=== PATIENT | female | born 1960 | race African-American/Black ===

== ENCOUNTER 2022-07-23 05:04 | Inpatient (IN) | payer MEDICAID, OTHER ==
[~2022-07-23] VITALS: Ht 160 cm; Wt 67.9 kg
[2022-07-23] MEDS ORDERED: ALBUTEROL SULF 2.5 MG/0.5ML(0.5%) NEB SOLN NEB ONE ×2 (05:15→06:30)
[2022-07-23] MEDS ORDERED: methylPREDNISolone SOD SUCC 125 MG/2 ML VL IV ONE (05:15)
[2022-07-23] MEDS ORDERED: IPRATROPIUM BROM 0.5 MG/2.5ML INH SOL NEB ONE ×2 (05:15→06:30)
[2022-07-23 06:51] LABS: Basophils # (auto) 0 10 ^3/uL (0-0.2); Basophils % (auto) 0.3 % (0.0-2.0); Eosinophils # (auto) 0 10 ^3/uL (0-0.8); Hematocrit 44.4 % (36.0-46.0); Hemoglobin 15.8 g/dL (12.2-16.2); Lymphocytes # (auto) 0.5 10 ^3/uL (0.4-5.4); Lymphocytes % (auto) 3.8 % (10.0-50.0); Mean Corpuscular Hemoglobin 29.7 pg (28.0-32.0); Mean Corpuscular Hgb Conc. 35.6 g/dL (32.0-36.0); Mean Corpuscular Volume 83.4 fL (80.0-100.0); Monocytes # (auto) 0.4 10 ^3/uL (0-1.3); Monocytes % (auto) 3.6 % (0.0-12.0); Neutrophils % (auto) 92.3 % (37.0-80.0); Nucleated Red Blood Cells % 0.1 %; Red Blood Cells 5.32 10^6/uL (4.0-5.20); Red Cell Distribution Width 15.6 % (11.8-14.3); White Blood Cell 11.9 10^3/uL (4.4-10.8)
[2022-07-23 07:04] LABS: Albumin 3.6 g/dL (3.4-5.0); Calcium 9.7 mg/dL (8.5-10.1); Potassium 3.3 mmol/L (3.5-5.1)
[2022-07-23 07:07] LABS: Bilirubin, Total 0.4 mg/dL (0.2-1.0); Total Protein 7.9 g/dL (6.4-8.2)
[2022-07-23] MEDS ORDERED: ASPirin 325 MG TAB PO ONE ×2 (07:45→08:30)
[2022-07-23] MEDS ORDERED: cefTRIAXone 1GM/50ML D5W 50 ML IV ONE (07:45)
[2022-07-23] MEDS ORDERED: MAGNESIUM SULFATE 1GM/100ML 100 ML IV ONE (07:45)
[2022-07-23] MEDS ORDERED: AZITHROMYCIN 500MG/ 250ML 250 ML IV ONE (07:45)
[2022-07-23 08:44] VITALS: BP 143/85
[2022-07-23] MEDS ORDERED: POTASSIUM EFFERVESENT TAB 25 MEQ PO ONE (09:00)
[2022-07-23 10:00] VITALS: BP 151/83
[2022-07-23] MEDS ORDERED: NITROGLYCERIN 0.4 MG SL TAB SL PRN (10:15)
[2022-07-23] MEDS ORDERED: DOCUSATE SOD 100 MG CAP PO PRN (10:15)
[2022-07-23] MEDS ORDERED: ONDANSETRON HCL 4 MG/2 ML VIAL IV PRN (10:15)
[2022-07-23] MEDS ORDERED: MORPHINE SULFATE INJ 2 MG/ml SYRG IV PRN ×2 (10:15)
[2022-07-23 11:35] LABS: INR 0.97 (0.9-1.15)
[2022-07-23] MEDS: SODIUM CHLORIDE 0.9% 1,000 ML IV SCH ×2 (11:40→21:17)
[2022-07-23 12:03] VITALS: BP 176/116
[2022-07-23] MEDS: methylPREDNISolone SOD SUCC 125 MG/2 ML VL IV SCH ×2 (13:45→22:33)
[2022-07-23] MEDS: IPRATROPIUM BROM 0.5 MG/2.5ML INH SOL NEB SCH ×3 (14:00→22:56)
[2022-07-23] MEDS: ALBUTEROL SULF 2.5 MG/0.5ML(0.5%) NEB SOLN NEB SCH ×3 (14:00→22:56)
[2022-07-23 14:46] LABS: Magnesium 2.4 mg/dL (1.6-2.6)
[2022-07-23] MEDS: ENOXAPARIN SOD 60 MG/0.6 ML SYRINGE SC SCH ×2 (15:16→22:33)
[2022-07-23] MEDS: OSELTAMIVIR 75 MG CAP PO SCH ×2 (16:27→22:32)
[2022-07-23] MEDS ORDERED: METOPROLOL TARTRATE 25 MG TAB PO SCH (22:00)
[2022-07-23] MEDS: ATORVASTATIN 20 MG TAB PO SCH (22:32)
[2022-07-23 23:09] VITALS: BP_SYST 150; BP_DIAS 89; BP_DIAS 99
[2022-07-23] MEDS ORDERED: ACETAMINOPHEN 325 MG TAB PO PRN (23:45)
[2022-07-24] VITALS (13 sets, daily range): BP systolic 99–179; BP diastolic 65–109
[2022-07-24] MEDS: SODIUM CHLORIDE 0.9% 1,000 ML IV SCH ×2 (02:55→11:15)
[2022-07-24] MEDS: hydrALAZINE HCL 20 MG/ML VL IV PRN (04:19)
[2022-07-24] MEDS: ALBUTEROL SULF 2.5 MG/0.5ML(0.5%) NEB SOLN NEB SCH ×5 (04:52→22:09)
[2022-07-24] MEDS: IPRATROPIUM BROM 0.5 MG/2.5ML INH SOL NEB SCH ×5 (04:52→22:09)
[2022-07-24] MEDS ORDERED: ALBU108A5 IN (05:35)
[2022-07-24] MEDS: methylPREDNISolone SOD SUCC 125 MG/2 ML VL IV SCH ×3 (05:52→21:46)
[2022-07-24 08:08] LABS: Basophils # (auto) 0 10 ^3/uL (0-0.2); Eosinophils # (auto) 0 10 ^3/uL (0-0.8); Hematocrit 45.1 % (36.0-46.0); Lymphocytes # (auto) 0.9 10 ^3/uL (0.4-5.4); Lymphocytes % (auto) 4.1 % (10.0-50.0); Mean Corpuscular Hemoglobin 28.6 pg (28.0-32.0); Mean Corpuscular Hgb Conc. 33.2 g/dL (32.0-36.0); Monocytes # (auto) 0.4 10 ^3/uL (0-1.3); Monocytes % (auto) 1.9 % (0.0-12.0); Neutrophils # (auto) 20.2 10 ^3/uL (1.6-8.6); Nucleated Red Blood Cells % 0.1 %; Red Blood Cells 5.25 10^6/uL (4.0-5.20); Red Cell Distribution Width 15.7 % (11.8-14.3); White Blood Cell 21.5 10^3/uL (4.4-10.8)
[2022-07-24 08:31] LABS: Albumin 3.1 g/dL (3.4-5.0); Calcium 9.8 mg/dL (8.5-10.1); Potassium 4.4 mmol/L (3.5-5.1)
[2022-07-24 08:37] LABS: BUN/Creatinine Ratio 20.5; Bilirubin, Total 0.4 mg/dL (0.2-1.0); Total Protein 7.4 g/dL (6.4-8.2)
[2022-07-24] MEDS: cefTRIAXone 1GM/50ML D5W 50 ML IV SCH (08:46)
[2022-07-24] MEDS: OSELTAMIVIR 75 MG CAP PO SCH ×2 (10:00→21:45)
[2022-07-24] MEDS: AZITHROMYCIN 500MG/ 250ML 250 ML IV SCH (10:00)
[2022-07-24] MEDS ORDERED: ENOXAPARIN SOD 40 MG/0.4 ML SYRINGE SC SCH (10:00)
[2022-07-24] MEDS: PANTOPRAZOLE 40 MG/10 ML VIAL INJ IV SCH (10:38)
[2022-07-24] MEDS: LISINOPRIL 20 MG TAB PO SCH (10:39)
[2022-07-24] MEDS: HCTZ 25 MG TAB PO SCH (10:40)
[2022-07-24] MEDS: NICOTINE 14 MG/24HR TOPICAL PATCH TD SCH (10:40)
[2022-07-24] MEDS: ENOXAPARIN SOD 60 MG/0.6 ML SYRINGE SC SCH ×2 (10:45→21:46)
[2022-07-24] MEDS ORDERED: FUROSEMIDE 20 MG/2 ML VIAL IV ONE (12:00)
[2022-07-24] MEDS ORDERED: FUROSEMIDE 20 MG/2 ML VIAL ONE (14:42)
[2022-07-24] MEDS: ATORVASTATIN 20 MG TAB PO SCH (21:45)
[2022-07-25] VITALS (18 sets, daily range): BP systolic 95–167; BP diastolic 66–99
[2022-07-25 04:11] LABS: Basophils # (auto) 0 10 ^3/uL (0-0.2); Basophils % (auto) 0.1 % (0.0-2.0); Eosinophils # (auto) 0 10 ^3/uL (0-0.8); Hematocrit 42.3 % (36.0-46.0); Hemoglobin 14.3 g/dL (12.2-16.2); Lymphocytes # (auto) 0.5 10 ^3/uL (0.4-5.4); Lymphocytes % (auto) 2.3 % (10.0-50.0); Mean Corpuscular Hemoglobin 28.8 pg (28.0-32.0); Mean Corpuscular Hgb Conc. 33.8 g/dL (32.0-36.0); Mean Corpuscular Volume 85.2 fL (80.0-100.0); Monocytes # (auto) 0.4 10 ^3/uL (0-1.3); Monocytes % (auto) 1.6 % (0.0-12.0); Neutrophils # (auto) 21.9 10 ^3/uL (1.6-8.6); Red Blood Cells 4.96 10^6/uL (4.0-5.20); Red Cell Distribution Width 15.2 % (11.8-14.3); White Blood Cell 22.8 10^3/uL (4.4-10.8)
[2022-07-25 04:23] LABS: Calcium 10.3 mg/dL (8.5-10.1); Potassium 4.1 mmol/L (3.5-5.1)
[2022-07-25] MEDS: methylPREDNISolone SOD SUCC 125 MG/2 ML VL IV SCH ×3 (05:54→22:34)
[2022-07-25] MEDS: IPRATROPIUM BROM 0.5 MG/2.5ML INH SOL NEB SCH ×5 (06:29→22:14)
[2022-07-25] MEDS: ALBUTEROL SULF 2.5 MG/0.5ML(0.5%) NEB SOLN NEB SCH ×5 (06:29→22:14)
[2022-07-25] MEDS: cefTRIAXone 1GM/50ML D5W 50 ML IV SCH (08:29)
[2022-07-25] MEDS: AZITHROMYCIN 500MG/ 250ML 250 ML IV SCH (09:13)
[2022-07-25] MEDS: PANTOPRAZOLE 40 MG/10 ML VIAL INJ IV SCH (09:13)
[2022-07-25] MEDS: HCTZ 25 MG TAB PO SCH (09:14)
[2022-07-25] MEDS: OSELTAMIVIR 75 MG CAP PO SCH ×2 (09:14→22:34)
[2022-07-25] MEDS: LISINOPRIL 20 MG TAB PO SCH (09:15)
[2022-07-25] MEDS: ENOXAPARIN SOD 60 MG/0.6 ML SYRINGE SC SCH ×2 (09:15→22:34)
[2022-07-25] MEDS: NICOTINE 14 MG/24HR TOPICAL PATCH TD SCH (09:25)
[2022-07-25] MEDS: ATORVASTATIN 20 MG TAB PO SCH (22:34)
[2022-07-26] VITALS (7 sets, daily range): BP systolic 127–167; BP diastolic 65–96
[2022-07-26] MEDS: methylPREDNISolone SOD SUCC 125 MG/2 ML VL IV SCH ×3 (05:53→21:58)
[2022-07-26] MEDS: IPRATROPIUM BROM 0.5 MG/2.5ML INH SOL NEB SCH ×5 (06:52→23:21)
[2022-07-26] MEDS: ALBUTEROL SULF 2.5 MG/0.5ML(0.5%) NEB SOLN NEB SCH ×5 (06:52→23:20)
[2022-07-26] MEDS: cefTRIAXone 1GM/50ML D5W 50 ML IV SCH (08:37)
[2022-07-26] MEDS: AZITHROMYCIN 500MG/ 250ML 250 ML IV SCH (09:44)
[2022-07-26] MEDS: PANTOPRAZOLE 40 MG/10 ML VIAL INJ IV SCH (09:44)
[2022-07-26] MEDS: HCTZ 25 MG TAB PO SCH (09:45)
[2022-07-26] MEDS: LISINOPRIL 20 MG TAB PO SCH (09:45)
[2022-07-26] MEDS: OSELTAMIVIR 75 MG CAP PO SCH ×2 (09:45→21:59)
[2022-07-26] MEDS: ENOXAPARIN SOD 60 MG/0.6 ML SYRINGE SC SCH (09:46)
[2022-07-26] MEDS: NICOTINE 14 MG/24HR TOPICAL PATCH TD SCH (09:46)
[2022-07-26] MEDS: ATORVASTATIN 20 MG TAB PO SCH (21:58)
[2022-07-27 05:00] VITALS: BP 127/71
[2022-07-27] MEDS: methylPREDNISolone SOD SUCC 125 MG/2 ML VL IV SCH ×3 (05:40→22:05)
[2022-07-27] MEDS: IPRATROPIUM BROM 0.5 MG/2.5ML INH SOL NEB SCH ×4 (06:05→21:49)
[2022-07-27] MEDS: ALBUTEROL SULF 2.5 MG/0.5ML(0.5%) NEB SOLN NEB SCH ×4 (06:05→21:49)
[2022-07-27] MEDS: cefTRIAXone 1GM/50ML D5W 50 ML IV SCH (08:13)
[2022-07-27 08:15] VITALS: BP 157/87
[2022-07-27 08:25] VITALS: BP 157/81
[2022-07-27] MEDS: AZITHROMYCIN 500MG/ 250ML 250 ML IV SCH (10:24)
[2022-07-27] MEDS: OSELTAMIVIR 75 MG CAP PO SCH ×2 (10:24→22:02)
[2022-07-27] MEDS: HCTZ 25 MG TAB PO SCH (10:25)
[2022-07-27] MEDS: LISINOPRIL 20 MG TAB PO SCH (10:25)
[2022-07-27] MEDS: NICOTINE 14 MG/24HR TOPICAL PATCH TD SCH (10:29)
[2022-07-27 13:00] VITALS: BP 153/92
[2022-07-27 16:37] VITALS: BP 165/99
[2022-07-27] MEDS: hydrALAZINE HCL 20 MG/ML VL IV PRN (17:12)
[2022-07-27] MEDS ORDERED: ASPirin 325 MG TAB PO ONE (18:00)
[2022-07-27] MEDS ORDERED: NITROGLYCERIN 0.4 MG SL TAB SL PRN (18:00)
[2022-07-27] MEDS ORDERED: MORPHINE SULFATE INJ 2 MG/ml SYRG IV ONE (18:00)
[2022-07-27] MEDS ORDERED: MORPHINE SULFATE INJ 2 MG/ml SYRG IV PRN (18:00)
[2022-07-27] MEDS ORDERED: ENOXAPARIN SOD 80 MG/0.8ML SYRINGE SC ONE (18:45)
[2022-07-27] MEDS: ATORVASTATIN 20 MG TAB PO SCH (22:02)
[2022-07-27] MEDS: ENOXAPARIN SOD 80 MG/0.8ML SYRINGE SC SCH (22:05)
[2022-07-27 22:18] VITALS: BP 138/70
[2022-07-28 05:00] VITALS: BP 125/65
[2022-07-28 05:00] LABS: Basophils # (auto) 0.1 10 ^3/uL (0-0.2); Basophils % (auto) 0.5 % (0.0-2.0); Eosinophils # (auto) 0 10 ^3/uL (0-0.8); Hematocrit 43.3 % (36.0-46.0); Lymphocytes # (auto) 0.5 10 ^3/uL (0.4-5.4); Lymphocytes % (auto) 4.4 % (10.0-50.0); Mean Corpuscular Hemoglobin 28.9 pg (28.0-32.0); Mean Corpuscular Hgb Conc. 34.7 g/dL (32.0-36.0); Mean Corpuscular Volume 83.1 fL (80.0-100.0); Monocytes # (auto) 0.6 10 ^3/uL (0-1.3); Neutrophils # (auto) 10.2 10 ^3/uL (1.6-8.6); Neutrophils % (auto) 90.1 % (37.0-80.0); Nucleated Red Blood Cells % 0.1 %; Red Blood Cells 5.21 10^6/uL (4.0-5.20); Red Cell Distribution Width 15.1 % (11.8-14.3); White Blood Cell 11.4 10^3/uL (4.4-10.8)
[2022-07-28 05:18] LABS: BUN/Creatinine Ratio 26.8; Calcium 10.4 mg/dL (8.5-10.1); Potassium 3.7 mmol/L (3.5-5.1)
[2022-07-28] MEDS: methylPREDNISolone SOD SUCC 125 MG/2 ML VL IV SCH ×3 (06:21→21:37)
[2022-07-28] MEDS: IPRATROPIUM BROM 0.5 MG/2.5ML INH SOL NEB SCH ×5 (07:16→21:58)
[2022-07-28] MEDS: ALBUTEROL SULF 2.5 MG/0.5ML(0.5%) NEB SOLN NEB SCH ×5 (07:16→21:58)
[2022-07-28] MEDS: cefTRIAXone 1GM/50ML D5W 50 ML IV SCH (08:08)
[2022-07-28 08:10] VITALS: BP 141/83
[2022-07-28 09:00] VITALS: BP 141/83
[2022-07-28] MEDS: NICOTINE 14 MG/24HR TOPICAL PATCH TD SCH (10:09)
[2022-07-28] MEDS: LISINOPRIL 20 MG TAB PO SCH (10:09)
[2022-07-28] MEDS: OSELTAMIVIR 75 MG CAP PO SCH ×2 (10:09→21:37)
[2022-07-28] MEDS: ASPirin 81 mg TAB PO SCH (10:09)
[2022-07-28] MEDS: AZITHROMYCIN 500MG/ 250ML 250 ML IV SCH (10:09)
[2022-07-28] MEDS: HCTZ 25 MG TAB PO SCH (10:10)
[2022-07-28] MEDS: ENOXAPARIN SOD 80 MG/0.8ML SYRINGE SC SCH ×2 (10:10→21:38)
[2022-07-28 13:00] VITALS: BP 144/88
[2022-07-28 17:00] VITALS: BP 136/86
[2022-07-28] MEDS: ATORVASTATIN 20 MG TAB PO SCH (21:37)
[2022-07-28 22:00] VITALS: BP 150/90
[2022-07-29] VITALS (8 sets, daily range): BP systolic 115–178; BP diastolic 60–110
[2022-07-29 04:28] LABS: Basophils # (auto) 0 10 ^3/uL (0-0.2); Basophils % (auto) 0.2 % (0.0-2.0); Eosinophils # (auto) 0 10 ^3/uL (0-0.8); Hematocrit 40.7 % (36.0-46.0); Hemoglobin 14.8 g/dL (12.2-16.2); Lymphocytes # (auto) 1.2 10 ^3/uL (0.4-5.4); Lymphocytes % (auto) 11.8 % (10.0-50.0); Mean Corpuscular Hemoglobin 29.5 pg (28.0-32.0); Mean Corpuscular Hgb Conc. 36.4 g/dL (32.0-36.0); Mean Corpuscular Volume 81.1 fL (80.0-100.0); Monocytes % (auto) 9.5 % (0.0-12.0); Neutrophils # (auto) 8.3 10 ^3/uL (1.6-8.6); Neutrophils % (auto) 78.5 % (37.0-80.0); Nucleated Red Blood Cells % 0.2 %; Red Blood Cells 5.02 10^6/uL (4.0-5.20); Red Cell Distribution Width 14.7 % (11.8-14.3); White Blood Cell 10.5 10^3/uL (4.4-10.8)
[2022-07-29 04:39] LABS: BUN/Creatinine Ratio 27.6; Calcium 10.5 mg/dL (8.5-10.1); Potassium 3.6 mmol/L (3.5-5.1)
[2022-07-29] MEDS: methylPREDNISolone SOD SUCC 125 MG/2 ML VL IV SCH ×2 (06:12→10:29)
[2022-07-29] MEDS: IPRATROPIUM BROM 0.5 MG/2.5ML INH SOL NEB SCH ×5 (08:23→22:09)
[2022-07-29] MEDS: ALBUTEROL SULF 2.5 MG/0.5ML(0.5%) NEB SOLN NEB SCH ×5 (08:23→22:08)
[2022-07-29] MEDS: cefTRIAXone 1GM/50ML D5W 50 ML IV SCH (08:24)
[2022-07-29] MEDS: NICOTINE 14 MG/24HR TOPICAL PATCH TD SCH (10:28)
[2022-07-29] MEDS: LISINOPRIL 20 MG TAB PO SCH (10:29)
[2022-07-29] MEDS: OSELTAMIVIR 75 MG CAP PO SCH ×2 (10:30→21:45)
[2022-07-29] MEDS: HCTZ 25 MG TAB PO SCH (10:30)
[2022-07-29] MEDS: ASPirin 81 mg TAB PO SCH (10:30)
[2022-07-29] MEDS: AZITHROMYCIN 500MG/ 250ML 250 ML IV SCH (10:30)
[2022-07-29] MEDS: ENOXAPARIN SOD 80 MG/0.8ML SYRINGE SC SCH ×2 (10:31→21:45)
[2022-07-29] MEDS ORDERED: REGADENOSON 0.4 MG/5 ML SYRG IV ONE (10:45)
[2022-07-29] MEDS: hydrALAZINE HCL 20 MG/ML VL IV PRN (17:40)
[2022-07-29] MEDS: ATORVASTATIN 20 MG TAB PO SCH (21:45)
[2022-07-30 05:00] VITALS: BP 172/113
[2022-07-30] MEDS: hydrALAZINE HCL 20 MG/ML VL IV PRN (05:07)
[2022-07-30 06:07] VITALS: BP 135/76
[2022-07-30 06:22] LABS: Basophils # (auto) 0.1 10 ^3/uL (0-0.2); Basophils % (auto) 0.4 % (0.0-2.0); Eosinophils # (auto) 0 10 ^3/uL (0-0.8); Eosinophils % (auto) 0.1 % (0.0-7.0); Hematocrit 45.8 % (36.0-46.0); Hemoglobin 15.5 g/dL (12.2-16.2); Lymphocytes # (auto) 1.9 10 ^3/uL (0.4-5.4); Lymphocytes % (auto) 13.5 % (10.0-50.0); Mean Corpuscular Hemoglobin 28.2 pg (28.0-32.0); Mean Corpuscular Hgb Conc. 33.9 g/dL (32.0-36.0); Mean Corpuscular Volume 83.3 fL (80.0-100.0); Monocytes # (auto) 1.2 10 ^3/uL (0-1.3); Monocytes % (auto) 8.4 % (0.0-12.0); Neutrophils # (auto) 10.9 10 ^3/uL (1.6-8.6); Neutrophils % (auto) 77.6 % (37.0-80.0); Nucleated Red Blood Cells % 0.1 %; Red Cell Distribution Width 14.8 % (11.8-14.3)
[2022-07-30 06:55] LABS: Potassium 3.7 mmol/L (3.5-5.1)
[2022-07-30 07:00] LABS: Calcium 10.6 mg/dL (8.5-10.1)
[2022-07-30] MEDS: ALBUTEROL SULF 2.5 MG/0.5ML(0.5%) NEB SOLN NEB SCH ×4 (07:24→14:11)
[2022-07-30] MEDS: IPRATROPIUM BROM 0.5 MG/2.5ML INH SOL NEB SCH ×4 (07:24→14:11)
[2022-07-30 08:52] VITALS: BP 132/75
[2022-07-30] MEDS: cefTRIAXone 1GM/50ML D5W 50 ML IV SCH (09:02)
[2022-07-30] MEDS: NICOTINE 14 MG/24HR TOPICAL PATCH TD SCH (09:02)
[2022-07-30] MEDS: AZITHROMYCIN 500MG/ 250ML 250 ML IV SCH (09:03)
[2022-07-30] MEDS: ASPirin 81 mg TAB PO SCH (09:03)
[2022-07-30] MEDS: methylPREDNISolone SOD SUCC 125 MG/2 ML VL IV SCH (09:03)
[2022-07-30] MEDS: LISINOPRIL 20 MG TAB PO SCH (09:03)
[2022-07-30] MEDS: ENOXAPARIN SOD 80 MG/0.8ML SYRINGE SC SCH (09:04)
[2022-07-30] MEDS: HCTZ 25 MG TAB PO SCH (09:04)
[2022-07-30] MEDS: OSELTAMIVIR 75 MG CAP PO SCH (10:00)
[2022-07-30] MEDS ORDERED: PRED20TA2 PO (10:14)
[2022-07-30 11:02] VITALS: BP 132/75
[2022-07-30 13:00] VITALS: BP 141/75
== END 2022-07-30 13:50 | disposition home or self-care (01) | DRG 140 ==
LOC: ER 05:04 → EDBD 05:04 → TELE 10:46 → TELE-WESTW 21:41 → ICU WEST 07-24 14:28 → TELE-EAST 07-25 12:00
PROVIDERS: ADMIT Nurse Practitioner Family; ATTEND Internal Medicine Pulmonary Disease
PROC: 5A09357 Assistance with Respiratory Ventilation, Less than 24 Consecutive Hours, Continuous Positive Airway Pressure (ICD-10-PCS; principal; 2022-07-23)
PROC: 5A09357 Assistance with Respiratory Ventilation, Less than 24 Consecutive Hours, Continuous Positive Airway Pressure (ICD-10-PCS; 2022-07-24)
PROC: 05HB33Z Insertion of Infusion Device into Right Basilic Vein, Percutaneous Approach (ICD-10-PCS; 2022-07-24)
PROC: B54MZZA Ultrasonography of Right Upper Extremity Veins, Guidance (ICD-10-PCS; 2022-07-24)
PROC: 5A09357 Assistance with Respiratory Ventilation, Less than 24 Consecutive Hours, Continuous Positive Airway Pressure (ICD-10-PCS; 2022-07-25)
PROC: 5A09357 Assistance with Respiratory Ventilation, Less than 24 Consecutive Hours, Continuous Positive Airway Pressure (ICD-10-PCS; 2022-07-26)
PROC: 5A09357 Assistance with Respiratory Ventilation, Less than 24 Consecutive Hours, Continuous Positive Airway Pressure (ICD-10-PCS; 2022-07-27)
DX: J44.1 Chronic obstructive pulmonary disease with (acute) exacerbation (principal); I21.A1 Myocardial infarction type 2; J96.01 Acute respiratory failure with hypoxia; J10.00 Influenza due to other identified influenza virus with unspecified type of pneumonia; J96.02 Acute respiratory failure with hypercapnia; E87.29 Other acidosis; J45.51 Severe persistent asthma with (acute) exacerbation; R65.10 Systemic inflammatory response syndrome (SIRS) of non-infectious origin without acute organ dysfunction; J44.0 Chronic obstructive pulmonary disease with (acute) lower respiratory infection; I10 Essential (primary) hypertension; Z20.822 Contact with and (suspected) exposure to COVID-19; E87.6 Hypokalemia; I16.0 Hypertensive urgency; F17.210 Nicotine dependence, cigarettes, uncomplicated; Z90.710 Acquired absence of both cervix and uterus
CPT/HCPCS: 36415; 36600; 71045; 78452; 80048; 80053; 82805; 83735; 83880; 84100; 84484; 85025; 85610; 85730; 87081; 87426; 87804; 93005; 93017; 93306; 93970; 94640; 94660; 96361; 96365; 96367; 96368; 96375; 99291; C9113; G0378; J0696

== ENCOUNTER 2024-01-12 10:58 | Emergency (ER) | payer MEDICAID, OTHER ==
[~2024-01-12] VITALS: Ht 157.5 cm; Wt 50.7 kg
[~2024-01-12 10:58] MED LIST: ALBU108A5 IN; PRED20TA2 PO
[2024-01-12 11:47] VITALS: RESP 98; O2SAT 93
[2024-01-12] MEDS: cloNIDine HCL 0.1 MG TAB PO ONE (11:59)
[2024-01-12] MEDS ORDERED: IPRATROPIUM BROM 0.5 MG/2.5ML INH SOL NEB ONE (12:30)
[2024-01-12] MEDS: ALBUTEROL SULF 2.5 MG/0.5ML(0.5%) NEB SOLN NEB ONE (12:49)
[2024-01-12] MEDS: IPRATROPIUM BROM 0.5 MG/2.5ML INH SOL NEB ONE (12:49)
[2024-01-12] MEDS: methylPREDNISolone SOD SUCC 125 MG/2 ML VL IM ONE (12:56)
[2024-01-12 12:57] VITALS: TEMP 98.2
[2024-01-12 13:20] VITALS: BP 117/80; PULSE 91; RESP 16; O2SAT 100
[2024-01-12] MEDS ORDERED: TRIA75TA11 PO (13:22)
[2024-01-12] MEDS ORDERED: ALB5IS NEB (13:22)
[2024-01-12] MEDS ORDERED: METH4PAK PO (13:22)
== END 2024-01-12 13:27 | disposition home or self-care (01) ==
LOC: ER 10:58
DX: J45.901 Unspecified asthma with (acute) exacerbation (principal); I10 Essential (primary) hypertension; Z91.148 Patient's other noncompliance with medication regimen for other reason; Z90.710 Acquired absence of both cervix and uterus
CPT/HCPCS: 71045; 94640; 96372; 99283; J2930; J7644

== ENCOUNTER 2024-01-17 10:11 | Inpatient (IN) | payer OTHER ==
[~2024-01-17] VITALS: Ht 157.5 cm; Wt 54.1 kg
[~2024-01-17 10:11] MED LIST changes: +ALB5IS NEB; +METH4PAK PO; +TRIA75TA11 PO
[2024-01-17 11:02] VITALS: PULSE 88; RESP 13; O2SAT 99
[2024-01-17] MEDS: IOHEXOL 300 MG/ML 100ML BOTTLE IJ ONE (11:32)
[2024-01-17 12:08] LABS: Basophils # (auto) 0 10 ^3/uL (0-0.2); Basophils % (auto) 0.6 % (0.0-2.0); Eosinophils # (auto) 0.1 10 ^3/uL (0-0.8); Eosinophils % (auto) 1.5 % (0.0-7.0); Hematocrit 41.2 % (36.0-46.0); Hemoglobin 14.4 g/dL (12.2-16.2); Lymphocytes # (auto) 1.5 10 ^3/uL (0.4-5.4); Lymphocytes % (auto) 19.1 % (10.0-50.0); Mean Corpuscular Hemoglobin 30.7 pg (28.0-32.0); Mean Corpuscular Hgb Conc. 34.9 g/dL (32.0-36.0); Mean Corpuscular Volume 87.8 fL (80.0-100.0); Monocytes # (auto) 0.4 10 ^3/uL (0-1.3); Monocytes % (auto) 4.7 % (0.0-12.0); Neutrophils % (auto) 74.1 % (37.0-80.0); Nucleated Red Blood Cells % 0.2 %; Red Cell Distribution Width 14.5 % (11.8-14.3)
[2024-01-17 12:21] LABS: INR 0.99 (0.9-1.15); Partial Thromboplastin Time 22.3 SEC (24.5-34.5); Prothrombin Time 10.5 sec (9.3-11.8)
[2024-01-17 12:27] LABS: Alanine Aminotransferase 13 U/L (7-40); Albumin 4.1 g/dL (3.2-4.8); Alkaline Phosphatase 73 U/L (46-116); Anion Gap 8 (5-15); Aspartate Aminotransferase 17 U/L (13-40); BUN/Creatinine Ratio 32.8 (10.0-20.0); Bilirubin, Total 0.8 mg/dL (0.2-1.0); Blood Urea Nitrogen 63 mg/dL (9-23); Calcium 10.8 mg/dL (8.5-10.1); Carbon Dioxide 32 mmol/L (20-30); Chloride 95 mmol/L (98-107); Glucose 143 mg/dL (74-106); Potassium 3.8 mmol/L (3.5-5.1); Sodium 135 mmol/L (136-145); Total Protein 6.6 g/dL (5.7-8.2)
[2024-01-17 14:52] LABS: Urine Bacteria FEW /hpf (None Seen); Urine Blood Negative /uL (Negative); Urine Clarity Clear (Clear); Urine Color Light-Yellow (Yellow); Urine Protein, UAD 1+ (Negative); Urine Urobilinogen Normal (Negative); Urine WBC 2 /hpf (0 - 5)
[2024-01-17 15:16] LABS: Urine Specific Gravity > 1.050 (1.001-1.035)
[2024-01-17] MEDS ORDERED: NITROGLYCERIN 0.4 MG SL TAB SL PRN (15:30)
[2024-01-17] MEDS ORDERED: ACETAMINOPHEN 325 MG TAB PO PRN (15:30)
[2024-01-17] MEDS ORDERED: MORPHINE SULFATE INJ 2 MG/ml SYRG IV PRN (15:30)
[2024-01-17 16:31] LABS: Amphetamine Screen, Urine Neg (NEGATIVE); Barbiturate Scree,Urine Neg (NEGATIVE); Benzodiazephine Screen, Urine Neg (NEGATIVE); Cannabinoid Screen, Urine Pos (NEGATIVE); Cocaine Screen, Urine Neg (NEGATIVE); Opiate Scree,Urine Neg (NEGATIVE); Phencyclidine Screen, Urine Neg (NEGATIVE)
[2024-01-17] MEDS: SODIUM CHLORIDE 0.9% 1,000 ML IV SCH (16:39)
[2024-01-17] MEDS: SODIUM CHLORIDE 0.9% 1,000 ML IV ONE (16:39)
[2024-01-17 18:36] VITALS: O2SAT 96
[2024-01-17 19:10] VITALS: BP 123/88; PULSE 98; RESP 18; TEMP 97.4; O2SAT 98
[2024-01-17 19:30] VITALS: PULSE 106; RESP 18; O2SAT 95
[2024-01-17 21:54] LABS: Protein, Urine 26.1 mg/dL (0.0-11.9)
[2024-01-17 21:57] LABS: Creatinine, Urine 118.65 mg/dL (30.0-125.0); Urine Protein/Creatinine Ratio 0.22
[2024-01-17 23:09] VITALS: BP 132/98; PULSE 95; RESP 19; TEMP 98.5; O2SAT 96
[2024-01-17] MEDS: HYDROcodone-ACET 5/325MG TAB PO PRN (23:24)
[2024-01-18] VITALS (10 sets, daily range): BP systolic 114–148; BP diastolic 78–101; PULSE 86–100; RESP 16–20; TEMP 97.8–98.4; O2SAT 90–100
[2024-01-18 06:13] LABS: Basophils # (auto) 0 10 ^3/uL (0-0.2); Basophils % (auto) 0.6 % (0.0-2.0); Eosinophils # (auto) 0.1 10 ^3/uL (0-0.8); Eosinophils % (auto) 1.9 % (0.0-7.0); Hematocrit 34.2 % (36.0-46.0); Hemoglobin 11.7 g/dL (12.2-16.2); Lymphocytes % (auto) 31.4 % (10.0-50.0); Mean Corpuscular Hemoglobin 30.3 pg (28.0-32.0); Mean Corpuscular Hgb Conc. 34.4 g/dL (32.0-36.0); Mean Corpuscular Volume 88.2 fL (80.0-100.0); Monocytes # (auto) 0.5 10 ^3/uL (0-1.3); Monocytes % (auto) 8.1 % (0.0-12.0); Neutrophils # (auto) 3.8 10 ^3/uL (1.6-8.6); Nucleated Red Blood Cells % 0.1 %; Red Blood Cells 3.88 10^6/uL (4.0-5.20); Red Cell Distribution Width 14.8 % (11.8-14.3); White Blood Cell 6.5 10^3/uL (4.4-10.8)
[2024-01-18 06:38] LABS: Alanine Aminotransferase 15 U/L (7-40); Albumin 3.5 g/dL (3.2-4.8); Alkaline Phosphatase 57 U/L (46-116); Anion Gap 7 (5-15); Aspartate Aminotransferase 15 U/L (13-40); BUN/Creatinine Ratio 39.8 (10.0-20.0); Bilirubin, Total 0.7 mg/dL (0.2-1.0); Carbon Dioxide 28 mmol/L (20-30); Chloride 100 mmol/L (98-107); Glucose 93 mg/dL (74-106); Potassium 3.2 mmol/L (3.5-5.1); Sodium 135 mmol/L (136-145); Total Protein 5.7 g/dL (5.7-8.2)
[2024-01-18 06:40] LABS: Blood Urea Nitrogen 45 mg/dL (9-23)
[2024-01-18] MEDS: LORazepam 2MG/ML-1ML VIAL IV PRN (08:20)
[2024-01-18] MEDS ORDERED: TRIAMTER PO SCH (10:00)
[2024-01-18] MEDS ORDERED: HYDROCHLOROTHIAZIDE PO SCH (10:00)
[2024-01-18] MEDS ORDERED: ENOXAPARIN SOD 40 MG/0.4 ML SYRINGE SC SCH (10:00)
[2024-01-18] MEDS ORDERED: TRIAMTERENE/HCTZ 37.5/25 MG CAP/TAB PO SCH (10:00)
[2024-01-18] MEDS: POTASSIUM EFFERVESENT TAB 25 MEQ PO ONE (12:31)
[2024-01-18] MEDS: ENOXAPARIN SOD 30 MG/0.3 ML SYRINGE SC SCH (12:31)
[2024-01-18] MEDS: ONDANSETRON HCL 4 MG/2 ML VIAL IV PRN (12:31)
[2024-01-19] VITALS (9 sets, daily range): BP systolic 138–155; BP diastolic 88–98; PULSE 84–94; RESP 16–18; TEMP 98–98.8; O2SAT 93–100
[2024-01-19 07:31] LABS: Alanine Aminotransferase 10 U/L (7-40); Alkaline Phosphatase 54 U/L (46-116); Anion Gap 3 (5-15); BUN/Creatinine Ratio 18.5 (10.0-20.0); Blood Urea Nitrogen 15 mg/dL (9-23); Calcium 10.1 mg/dL (8.5-10.1); Carbon Dioxide 31 mmol/L (20-30); Chloride 103 mmol/L (98-107); Glucose 83 mg/dL (74-106); Potassium 4.6 mmol/L (3.5-5.1); Sodium 137 mmol/L (136-145)
[2024-01-19 07:32] LABS: Albumin 3.4 g/dL (3.2-4.8); Aspartate Aminotransferase 15 U/L (13-40); Bilirubin, Total 0.7 mg/dL (0.2-1.0); Phosphorus 2.7 mg/dL (2.4-5.1); Total Protein 5.8 g/dL (5.7-8.2)
[2024-01-19] MEDS: ALBUTEROL SULF 2.5 MG/0.5ML(0.5%) NEB SOLN NEB PRN (11:19)
== END 2024-01-19 17:45 | disposition home or self-care (01) | DRG 640 ==
LOC: ER 10:11 → TELE 15:27 → TELE-CENTR 22:25
PROVIDERS: ADMIT Internal Medicine Geriatric Medicine; ATTEND Internal Medicine Geriatric Medicine
DX: E86.0 Dehydration (principal); N17.0 Acute kidney failure with tubular necrosis; I95.9 Hypotension, unspecified; E87.6 Hypokalemia; E83.52 Hypercalcemia; N18.9 Chronic kidney disease, unspecified; I48.91 Unspecified atrial fibrillation; J45.909 Unspecified asthma, uncomplicated; R00.0 Tachycardia, unspecified; F12.10 Cannabis abuse, uncomplicated; R80.9 Proteinuria, unspecified; F17.200 Nicotine dependence, unspecified, uncomplicated; Z80.1 Family history of malignant neoplasm of trachea, bronchus and lung; Z90.710 Acquired absence of both cervix and uterus
CPT/HCPCS: 36415; 70450; 70551; 71045; 71260; 72125; 74177; 76775; 80053; 80307; 81001; 82306; 82550; 82570; 83036; 83735; 83930; 83970; 84100; 84156; 84300; 84443; 84484; 85025; 85610; 85730; 86850; 86900; 86901; 93306; 93886; 95819; G0378; J2405

== ENCOUNTER 2024-06-26 17:02 | Inpatient (IN) | payer MEDICARE, MEDICAID ==
[~2024-06-26] VITALS: Ht 157.5 cm; Wt 58.4 kg
[~2024-06-26 17:02] MED LIST changes: -METH4PAK PO; -PRED20TA2 PO
[2024-06-26] MEDS: IPRATROPIUM BROM 0.5 MG/2.5ML INH SOL NEB ONE (17:51)
[2024-06-26] MEDS: ALBUTEROL SULF 2.5 MG/0.5ML(0.5%) NEB SOLN NEB ONE (17:51)
[2024-06-26 18:26] LABS: Basophils # (auto) 0 10 ^3/uL (0-0.2); Basophils % (auto) 0.4 % (0.0-2.0); Eosinophils # (auto) 0 10 ^3/uL (0-0.8); Eosinophils % (auto) 0.6 % (0.0-7.0); Hematocrit 38.2 % (36.0-46.0); Hemoglobin 13.7 g/dL (12.2-16.2); Lymphocytes # (auto) 0.4 10 ^3/uL (0.4-5.4); Lymphocytes % (auto) 5.3 % (10.0-50.0); Mean Corpuscular Hemoglobin 30.1 pg (28.0-32.0); Mean Corpuscular Hgb Conc. 35.8 g/dL (32.0-36.0); Mean Corpuscular Volume 84.2 fL (80.0-100.0); Monocytes # (auto) 0.4 10 ^3/uL (0-1.3); Neutrophils # (auto) 7.1 10 ^3/uL (1.6-8.6); Neutrophils % (auto) 88.7 % (37.0-80.0); Nucleated Red Blood Cells % 0.1 %; Platelet Count (auto) 276 10^3/uL (140-450); Red Blood Cells 4.54 10^6/uL (4.0-5.20); Red Cell Distribution Width 15.2 % (11.8-14.3)
[2024-06-26 18:33] LABS: Chloride 100 mmol/L (98-107); Potassium 3.7 mmol/L (3.5-5.1); Sodium 133 mmol/L (136-145)
[2024-06-26 18:34] LABS: Anion Gap 5 (5-15); Carbon Dioxide 28 mmol/L (20-31)
[2024-06-26 18:39] LABS: BUN/Creatinine Ratio 10.1 (10.0-20.0); Blood Urea Nitrogen 10 mg/dL (9-23); Glucose 119 mg/dL (74-106)
[2024-06-26] MEDS ORDERED: NITROGLYCERIN 0.4 MG SL TAB SL PRN (20:45)
[2024-06-26] MEDS ORDERED: MORPHINE SULFATE INJ 2 MG/ml SYRG IV PRN (20:45)
[2024-06-26] MEDS ORDERED: TEMAZEPAM 15 MG CAP PO PRN (20:45)
[2024-06-26 21:46] VITALS: BP 144/72; PULSE 108; RESP 20; TEMP 98.2; O2SAT 97
[2024-06-26] MEDS: MAGNESIUM SULFATE 1GM/100ML 100 ML IV ONE (21:47)
[2024-06-26] MEDS: ACETAMINOPHEN 325 MG TAB PO PRN (21:47)
[2024-06-26] MEDS: methylPREDNISolone SOD SUCC 125 MG/2 ML VL IV ONE (21:47)
[2024-06-26] MEDS: methylPREDNISolone SOD SUCC 40 MG/ML VL IV SCH (21:48)
[2024-06-26 21:59] VITALS: PULSE 102; RESP 22; O2SAT 97
[2024-06-26 22:22] VITALS: BP 117/83; PULSE 99; RESP 19; TEMP 98.3; O2SAT 96
[2024-06-26 22:51] VITALS: BP 117/83; PULSE 104; RESP 18; O2SAT 95
[2024-06-26] MEDS: MONTELUKAST SODIUM 10 MG TAB PO SCH (23:21)
[2024-06-26] MEDS ORDERED: MONT-8 PO (23:37)
[2024-06-26] MEDS ORDERED: LOSA-534 PO (23:37)
[2024-06-26] MEDS ORDERED: INFLUENZA TRIVALENT 2024-2025 0.5 ML INJ IM ONE (23:45)
[2024-06-27] VITALS (23 sets, daily range): BP systolic 140–183; BP diastolic 78–110; PULSE 85–112; RESP 16–28; TEMP 97.6–98.6; O2SAT 88–100
[2024-06-27] MEDS: IPRATROPIUM BROM 0.5 MG/2.5ML INH SOL NEB PRN (00:05)
[2024-06-27] MEDS: ALBUTEROL SULF 2.5 MG/0.5ML(0.5%) NEB SOLN NEB PRN (00:05)
[2024-06-27] MEDS: cefTRIAXone 1GM/50ML D5W 50 ML IV SCH (05:58)
[2024-06-27] MEDS: AZITHROMYCIN 500MG/ 250ML 250 ML IV SCH (05:58)
[2024-06-27] MEDS: HYDROcodone-ACET 5/325MG TAB PO ONE (09:12)
[2024-06-27] MEDS: LOSARTAN POTASSIUM 50 MG TAB PO SCH (09:13)
[2024-06-27] MEDS: hydroCHLOROthiazide 25 MG TAB PO SCH (09:14)
[2024-06-27 09:26] LABS: Hematocrit 39.4 % (36.0-46.0); Hemoglobin 14.1 g/dL (12.2-16.2); Mean Corpuscular Hemoglobin 30.5 pg (28.0-32.0); Mean Corpuscular Hgb Conc. 35.8 g/dL (32.0-36.0); Mean Corpuscular Volume 85.3 fL (80.0-100.0); Platelet Count (auto) 271 10^3/uL (140-450); Red Blood Cells 4.62 10^6/uL (4.0-5.20); Red Cell Distribution Width 15.3 % (11.8-14.3)
[2024-06-27 09:31] LABS: Band Neutrophils % (manual) 0; Basophils % (manual) 0 (0.0-2.0); Blast Cells 0; Eosinophils % (manual) 0 (0-7); Metamyelocytes % 0; Myelocytes % 0; Promyelocytes % 0; Reactive Lymphocytes 0
[2024-06-27 09:37] LABS: Chloride 98 mmol/L (98-107); Sodium 131 mmol/L (136-145)
[2024-06-27 09:38] LABS: Anion Gap 5 (5-15); Carbon Dioxide 28 mmol/L (20-31)
[2024-06-27 09:39] LABS: Calcium 11.3 mg/dL (8.7-10.4)
[2024-06-27 09:44] LABS: Glucose 174 mg/dL (74-106)
[2024-06-27 09:45] LABS: BUN/Creatinine Ratio 15.4 (10.0-20.0); Blood Urea Nitrogen 18 mg/dL (9-23)
[2024-06-27] MEDS ORDERED: LOSARTAN POTASSIUM 50 MG TAB PO SCH (10:00)
[2024-06-27] MEDS: ALBUTEROL SULF 2.5 MG/0.5ML(0.5%) NEB SOLN NEB SCH (10:37)
[2024-06-27] MEDS: IPRATROPIUM BROM 0.5 MG/2.5ML INH SOL NEB SCH (10:37)
[2024-06-27 12:18] LABS: Lymphocytes % (manual) 1 (10.0-50.0); Monocytes % (manual) 4 (0-12); Platelet Estimate Adequate
[2024-06-27 13:04] LABS: Rapid Influenza A Negative (Negative); Rapid Influenza B Negative (Negative)
[2024-06-27 13:07] LABS: COVID19 ANTIGEN SOFIA FIA NEGATIVE (NEGATIVE)
[2024-06-27 14:02] LABS: Amphetamine Screen, Urine Neg (NEGATIVE); Barbiturate Scree,Urine Neg (NEGATIVE); Benzodiazephine Screen, Urine Neg (NEGATIVE); Cocaine Screen, Urine Neg (NEGATIVE); Opiate Scree,Urine Neg (NEGATIVE)
[2024-06-27 14:03] LABS: Cannabinoid Screen, Urine Pos (NEGATIVE); Phencyclidine Screen, Urine Neg (NEGATIVE)
[2024-06-27 15:10] LABS: Urine Bacteria FEW /hpf (None Seen); Urine Blood Negative /uL (Negative); Urine Clarity Clear (Clear); Urine Color Light-Yellow (Yellow); Urine Protein, UAD 1+ (Negative); Urine Specific Gravity 1.019 (1.001-1.035); Urine Urobilinogen Normal (Negative); Urine WBC 1 /hpf (0 - 5); Urine pH 5.5 (5.0-9.0)
[2024-06-27] MEDS: ENOXAPARIN SOD 40 MG/0.4 ML SYRINGE SC ONE (16:41)
[2024-06-27] MEDS: ERGOCALCIFEROL 50,000 UNIT(1.25MG) CAP PO SCH (16:41)
[2024-06-27] MEDS: SODIUM CHLORIDE 0.9% 1,000 ML IV SCH (16:42)
[2024-06-27] MEDS: hydrALAZINE HCL 20 MG/ML VL IV ONE (17:35)
[2024-06-27] MEDS: HYDROcodone-ACET 10/325MG TAB PO PRN (20:31)
[2024-06-28] VITALS (22 sets, daily range): BP systolic 105–165; BP diastolic 63–97; PULSE 90–117; RESP 16–21; TEMP 97.5–99.7; O2SAT 90–100
[2024-06-28 06:58] LABS: Chloride 98 mmol/L (98-107); Potassium 4.2 mmol/L (3.5-5.1); Sodium 131 mmol/L (136-145)
[2024-06-28 06:59] LABS: Anion Gap 3 (5-15); Carbon Dioxide 30 mmol/L (20-31)
[2024-06-28 07:00] LABS: Calcium 11.5 mg/dL (8.7-10.4)
[2024-06-28 07:03] LABS: Hematocrit 37.9 % (36.0-46.0); Hemoglobin 13.4 g/dL (12.2-16.2); Mean Corpuscular Hemoglobin 30.1 pg (28.0-32.0); Mean Corpuscular Hgb Conc. 35.3 g/dL (32.0-36.0); Mean Corpuscular Volume 85.1 fL (80.0-100.0); Platelet Count (auto) 282 10^3/uL (140-450); Red Blood Cells 4.45 10^6/uL (4.0-5.20); Red Cell Distribution Width 15.4 % (11.8-14.3); White Blood Cell 26.4 10^3/uL (4.4-10.8)
[2024-06-28 07:04] LABS: Glucose 124 mg/dL (74-106)
[2024-06-28 07:05] LABS: BUN/Creatinine Ratio 19.3 (10.0-20.0); Blood Urea Nitrogen 23 mg/dL (9-23)
[2024-06-28 07:07] LABS: Band Neutrophils % (manual) 0; Basophils % (manual) 0 (0.0-2.0); Blast Cells 0; Eosinophils % (manual) 0 (0-7); Metamyelocytes % 0; Myelocytes % 0; Promyelocytes % 0; Reactive Lymphocytes 0
[2024-06-28 07:51] LABS: Lymphocytes % (manual) 2 (10.0-50.0); Monocytes % (manual) 2 (0-12); Platelet Estimate Adequate
[2024-06-28] MEDS: ENOXAPARIN SOD 40 MG/0.4 ML SYRINGE SC SCH (09:42)
[2024-06-28] MEDS ORDERED: SODIUM CHLORIDE 0.9% 1,000 ML IV SCH (11:30)
[2024-06-29] VITALS (23 sets, daily range): BP systolic 123–183; BP diastolic 75–118; PULSE 78–109; RESP 16–19; TEMP 98–99.9; O2SAT 95–100
[2024-06-29] MEDS ORDERED: LABETALOL HCL 20 MG/4 ML VL IV PRN (00:45)
[2024-06-29] MEDS: ENALAPRILAT 1.25 MG/ML-1ML VIAL IV ONE (00:45)
[2024-06-29 07:32] LABS: Chloride 97 mmol/L (98-107); Potassium 4.8 mmol/L (3.5-5.1); Sodium 132 mmol/L (136-145)
[2024-06-29 07:33] LABS: Anion Gap 0 (5-15); Calcium 11.7 mg/dL (8.7-10.4); Carbon Dioxide 35 mmol/L (20-31)
[2024-06-29 07:34] LABS: Basophils # (auto) 0.1 10 ^3/uL (0-0.2); Basophils % (auto) 0.3 % (0.0-2.0); Eosinophils # (auto) 0 10 ^3/uL (0-0.8); Hematocrit 38.4 % (36.0-46.0); Hemoglobin 13.6 g/dL (12.2-16.2); Lymphocytes # (auto) 0.5 10 ^3/uL (0.4-5.4); Lymphocytes % (auto) 3.1 % (10.0-50.0); Mean Corpuscular Hemoglobin 30.1 pg (28.0-32.0); Mean Corpuscular Hgb Conc. 35.5 g/dL (32.0-36.0); Mean Corpuscular Volume 84.7 fL (80.0-100.0); Monocytes # (auto) 0.4 10 ^3/uL (0-1.3); Neutrophils # (auto) 16.8 10 ^3/uL (1.6-8.6); Neutrophils % (auto) 94.6 % (37.0-80.0); Platelet Count (auto) 319 10^3/uL (140-450); Red Blood Cells 4.53 10^6/uL (4.0-5.20); Red Cell Distribution Width 15.4 % (11.8-14.3); White Blood Cell 17.8 10^3/uL (4.4-10.8)
[2024-06-29 07:39] LABS: BUN/Creatinine Ratio 20.4 (10.0-20.0); Blood Urea Nitrogen 22 mg/dL (9-23); Glucose 118 mg/dL (74-106)
[2024-06-29] MEDS: hydroCHLOROthiazide 25 MG TAB PO SCH (09:25)
[2024-06-29] MEDS: guaiFENesin-CODEINE Liq 5 ML UD PO PRN (09:26)
[2024-06-30] VITALS (21 sets, daily range): BP systolic 125–166; BP diastolic 90–110; PULSE 83–109; RESP 16–19; TEMP 97.9–98.5; O2SAT 90–100
[2024-06-30 07:31] LABS: Basophils # (auto) 0 10 ^3/uL (0-0.2); Basophils % (auto) 0.2 % (0.0-2.0); Eosinophils # (auto) 0 10 ^3/uL (0-0.8); Hematocrit 42.7 % (36.0-46.0); Hemoglobin 14.9 g/dL (12.2-16.2); Lymphocytes # (auto) 0.8 10 ^3/uL (0.4-5.4); Lymphocytes % (auto) 5.9 % (10.0-50.0); Mean Corpuscular Hemoglobin 29.6 pg (28.0-32.0); Mean Corpuscular Hgb Conc. 34.9 g/dL (32.0-36.0); Monocytes # (auto) 0.5 10 ^3/uL (0-1.3); Monocytes % (auto) 4.1 % (0.0-12.0); Neutrophils # (auto) 11.6 10 ^3/uL (1.6-8.6); Neutrophils % (auto) 89.8 % (37.0-80.0); Nucleated Red Blood Cells % 0.2 %; Platelet Count (auto) 322 10^3/uL (140-450); Red Blood Cells 5.03 10^6/uL (4.0-5.20); Red Cell Distribution Width 15.3 % (11.8-14.3)
[2024-06-30 07:51] LABS: Chloride 89 mmol/L (98-107); Potassium 5.1 mmol/L (3.5-5.1)
[2024-06-30 07:52] LABS: Anion Gap 3 (5-15); Calcium 12.5 mg/dL (8.7-10.4); Carbon Dioxide 33 mmol/L (20-31)
[2024-06-30 07:57] LABS: BUN/Creatinine Ratio 14.7 (10.0-20.0); Blood Urea Nitrogen 14 mg/dL (9-23); Glucose 132 mg/dL (74-106)
[2024-06-30 08:06] LABS: Sodium 125 mmol/L (136-145)
[2024-06-30] MEDS: SODIUM CHLORIDE 0.9% 1,000 ML IV SCH ×2 (09:27→12:24)
[2024-06-30] MEDS: NIFEdipine ER 30 MG TAB PO SCH (12:55)
[2024-06-30] MEDS: LOSARTAN POTASSIUM 50 MG TAB PO ONE (18:25)
[2024-06-30] MEDS: cloNIDine HCL 0.1 MG TAB PO ONE (18:26)
[2024-07-01] VITALS (21 sets, daily range): BP systolic 106–146; BP diastolic 79–97; PULSE 80–114; RESP 18–20; TEMP 97.8–98; O2SAT 92–100
[2024-07-01 07:40] LABS: Basophils # (auto) 0 10 ^3/uL (0-0.2); Basophils % (auto) 0.1 % (0.0-2.0); Eosinophils # (auto) 0 10 ^3/uL (0-0.8); Hemoglobin 13.2 g/dL (12.2-16.2); Lymphocytes # (auto) 0.8 10 ^3/uL (0.4-5.4); Lymphocytes % (auto) 8.2 % (10.0-50.0); Mean Corpuscular Hemoglobin 30.1 pg (28.0-32.0); Mean Corpuscular Hgb Conc. 35.5 g/dL (32.0-36.0); Mean Corpuscular Volume 84.7 fL (80.0-100.0); Monocytes # (auto) 0.7 10 ^3/uL (0-1.3); Monocytes % (auto) 7.1 % (0.0-12.0); Neutrophils # (auto) 8.1 10 ^3/uL (1.6-8.6); Neutrophils % (auto) 84.6 % (37.0-80.0); Nucleated Red Blood Cells % 0.1 %; Platelet Count (auto) 282 10^3/uL (140-450); Red Blood Cells 4.37 10^6/uL (4.0-5.20); Red Cell Distribution Width 15.2 % (11.8-14.3); White Blood Cell 9.5 10^3/uL (4.4-10.8)
[2024-07-01 07:46] LABS: Chloride 94 mmol/L (98-107); Potassium 4.8 mmol/L (3.5-5.1); Sodium 128 mmol/L (136-145)
[2024-07-01 07:47] LABS: Anion Gap 2 (5-15); Calcium 11.3 mg/dL (8.7-10.4); Carbon Dioxide 32 mmol/L (20-31)
[2024-07-01 07:52] LABS: Glucose 126 mg/dL (74-106)
[2024-07-01 07:53] LABS: BUN/Creatinine Ratio 29.3 (10.0-20.0)
[2024-07-01 07:54] LABS: Blood Urea Nitrogen 24 mg/dL (9-23)
[2024-07-01] MEDS: LOSARTAN POTASSIUM 50 MG TAB PO SCH (09:59)
[2024-07-02] VITALS (22 sets, daily range): BP systolic 97–135; BP diastolic 67–97; PULSE 92–113; RESP 14–21; TEMP 97.8–98.5; O2SAT 92–100
[2024-07-02 05:37] LABS: Anion Gap 2 (5-15); Carbon Dioxide 32 mmol/L (20-31); Chloride 92 mmol/L (98-107); Potassium 4.9 mmol/L (3.5-5.1); Sodium 126 mmol/L (136-145)
[2024-07-02 05:43] LABS: BUN/Creatinine Ratio 32.3 (10.0-20.0); Blood Urea Nitrogen 30 mg/dL (9-23); Glucose 136 mg/dL (74-106)
[2024-07-02] MEDS ORDERED: CALCITONIN 400unit/2ml Vial (200unit/ml) IM ONE (15:45)
[2024-07-02] MEDS: FUROSEMIDE 40 MG/4 ML VIAL IV ONE (18:05)
[2024-07-03] VITALS (19 sets, daily range): BP systolic 110–132; BP diastolic 60–82; PULSE 89–117; RESP 16–22; TEMP 98–98.9; O2SAT 92–100
[2024-07-03] MEDS: ALENDRONATE SODIUM 10 MG TAB PO SCH (05:57)
[2024-07-03 07:21] LABS: Basophils # (auto) 0 10 ^3/uL (0-0.2); Basophils % (auto) 0.1 % (0.0-2.0); Eosinophils # (auto) 0 10 ^3/uL (0-0.8); Hematocrit 26.8 % (36.0-46.0); Hemoglobin 9.5 g/dL (12.2-16.2); Lymphocytes # (auto) 0.5 10 ^3/uL (0.4-5.4); Lymphocytes % (auto) 4.6 % (10.0-50.0); Mean Corpuscular Hemoglobin 30.2 pg (28.0-32.0); Mean Corpuscular Hgb Conc. 35.3 g/dL (32.0-36.0); Mean Corpuscular Volume 85.6 fL (80.0-100.0); Monocytes # (auto) 0.6 10 ^3/uL (0-1.3); Monocytes % (auto) 5.7 % (0.0-12.0); Neutrophils # (auto) 9.7 10 ^3/uL (1.6-8.6); Neutrophils % (auto) 89.6 % (37.0-80.0); Nucleated Red Blood Cells % 0.1 %; Platelet Count (auto) 261 10^3/uL (140-450); Red Blood Cells 3.13 10^6/uL (4.0-5.20); White Blood Cell 10.9 10^3/uL (4.4-10.8)
[2024-07-03 07:31] LABS: Alanine Aminotransferase 18 U/L (7-40); Albumin 3.5 g/dL (3.2-4.8); Alkaline Phosphatase 41 U/L (46-116); Anion Gap 0 (5-15); Blood Urea Nitrogen 31 mg/dL (9-23); Calcium 10.8 mg/dL (8.7-10.4); Carbon Dioxide 30 mmol/L (20-31); Chloride 98 mmol/L (98-107); Glucose 128 mg/dL (74-106); Potassium 5.3 mmol/L (3.5-5.1); Sodium 128 mmol/L (136-145)
[2024-07-03 07:32] LABS: Aspartate Aminotransferase 12 U/L (13-40); Bilirubin, Total 0.3 mg/dL (0.2-1.0); Total Protein 5.7 g/dL (5.7-8.2)
[2024-07-03 10:48] LABS: Magnesium 1.7 mg/dL (1.6-2.6)
[2024-07-03 10:49] LABS: Phosphorus 3.6 mg/dL (2.4-5.1)
[2024-07-03] MEDS: DEXTROSE (50%) 50ML SYRG IV ONE (11:01)
[2024-07-03] MEDS: FUROSEMIDE 40 MG/4 ML VIAL IV SCH (11:02)
[2024-07-03] MEDS: predniSONE 20 MG TAB PO SCH (11:03)
[2024-07-03] MEDS: InsuLIN REG 1unit/0.01ml Soln (100units/ml) IV ONE (11:25)
[2024-07-03] MEDS: MAGNESIUM SULFATE 1GM/100ML 100 ML IV ONE (20:50)
[2024-07-04] VITALS (19 sets, daily range): BP systolic 117–152; BP diastolic 68–89; PULSE 86–110; RESP 18–22; TEMP 98.1–99; O2SAT 91–100
[2024-07-04 07:55] LABS: Basophils # (auto) 0 10 ^3/uL (0-0.2); Basophils % (auto) 0.2 % (0.0-2.0); Eosinophils # (auto) 0 10 ^3/uL (0-0.8); Eosinophils % (auto) 0.5 % (0.0-7.0); Hematocrit 25.8 % (36.0-46.0); Hemoglobin 9.3 g/dL (12.2-16.2); Lymphocytes # (auto) 2.5 10 ^3/uL (0.4-5.4); Lymphocytes % (auto) 24.5 % (10.0-50.0); Mean Corpuscular Hemoglobin 30.5 pg (28.0-32.0); Mean Corpuscular Hgb Conc. 36.1 g/dL (32.0-36.0); Mean Corpuscular Volume 84.5 fL (80.0-100.0); Monocytes # (auto) 1.4 10 ^3/uL (0-1.3); Neutrophils # (auto) 6.2 10 ^3/uL (1.6-8.6); Neutrophils % (auto) 60.8 % (37.0-80.0); Nucleated Red Blood Cells % 0.1 %; Platelet Count (auto) 300 10^3/uL (140-450); Red Blood Cells 3.06 10^6/uL (4.0-5.20); Red Cell Distribution Width 14.8 % (11.8-14.3); White Blood Cell 10.1 10^3/uL (4.4-10.8)
[2024-07-04 08:08] LABS: Anion Gap 0 (5-15); Calcium 10.9 mg/dL (8.7-10.4); Carbon Dioxide 31 mmol/L (20-31); Chloride 99 mmol/L (98-107); Sodium 130 mmol/L (136-145)
[2024-07-04 08:13] LABS: Glucose 102 mg/dL (74-106)
[2024-07-04 08:14] LABS: BUN/Creatinine Ratio 29.8 (10.0-20.0); Blood Urea Nitrogen 25 mg/dL (9-23); LDL Cholesterol 95 mg/dL (< 100); Magnesium 1.9 mg/dL (1.6-2.6); Triglycerides 99 mg/dL (< 150)
[2024-07-04 08:16] LABS: Cholesterol 188 mg/dL (< 200); HDL Cholesterol 74 mg/dL (40-59)
[2024-07-04] MEDS: IOHEXOL 300 MG/ML 100ML BOTTLE IJ ONE ×2 (08:57→08:58)
[2024-07-04] MEDS: OMNIPAQUE 12mg/ml 500ml ORAL SOLUTION PO ONE (08:58)
[2024-07-04 11:00] LABS: Creatinine, Urine 78.04 mg/dL (30.0-125.0)
[2024-07-04] MEDS: POLYETHYLENE GLYCOL 17 GM PWDR PO PRN (11:15)
[2024-07-04] MEDS: diphenhdrAMINE HCL 50 MG/1 ML VL IV ONE (20:30)
[2024-07-05] VITALS (17 sets, daily range): BP systolic 107–143; BP diastolic 62–81; PULSE 90–106; RESP 16–20; TEMP 97.6–98.3; O2SAT 95–100
[2024-07-05] MEDS: LEVALBUTEROL HCL 1.25 MG/3 ML NEB NEB SCH (00:20)
[2024-07-05] MEDS: ONDANSETRON HCL 4 MG/2 ML VIAL IV PRN (00:49)
[2024-07-05 05:32] LABS: Chloride 96 mmol/L (98-107); Potassium 4.1 mmol/L (3.5-5.1); Sodium 129 mmol/L (136-145)
[2024-07-05 05:34] LABS: Anion Gap 2 (5-15); Calcium 11.1 mg/dL (8.7-10.4); Carbon Dioxide 31 mmol/L (20-31)
[2024-07-05 05:39] LABS: BUN/Creatinine Ratio 21.3 (10.0-20.0); Blood Urea Nitrogen 20 mg/dL (9-23); Glucose 91 mg/dL (74-106)
[2024-07-05] MEDS: IPRATROPIUM BROM 0.5 MG/2.5ML INH SOL NEB SCH (07:24)
[2024-07-05 15:43] LABS: Basophils # (auto) 0.1 10 ^3/uL (0-0.2); Basophils % (auto) 0.7 % (0.0-2.0); Eosinophils # (auto) 0.1 10 ^3/uL (0-0.8); Eosinophils % (auto) 0.5 % (0.0-7.0); Hematocrit 26.3 % (36.0-46.0); Hemoglobin 9.1 g/dL (12.2-16.2); Lymphocytes # (auto) 2.1 10 ^3/uL (0.4-5.4); Mean Corpuscular Hgb Conc. 34.8 g/dL (32.0-36.0); Mean Corpuscular Volume 86.4 fL (80.0-100.0); Monocytes # (auto) 1.2 10 ^3/uL (0-1.3); Monocytes % (auto) 9.9 % (0.0-12.0); Neutrophils # (auto) 8.9 10 ^3/uL (1.6-8.6); Neutrophils % (auto) 71.9 % (37.0-80.0); Nucleated Red Blood Cells % 0.4 %; Platelet Count (auto) 338 10^3/uL (140-450); Red Blood Cells 3.04 10^6/uL (4.0-5.20); White Blood Cell 12.4 10^3/uL (4.4-10.8)
[2024-07-05] MEDS: diphenhdrAMINE HCL 50 MG/1 ML VL IM ONE (16:45)
[2024-07-05] MEDS: PANTOPRAZOLE 40 MG/10 ML VIAL INJ IV ONE (17:56)
[2024-07-05] MEDS: METOPROLOL SUCCINATE XL 50 MG TAB PO ONE (18:00)
[2024-07-05] MEDS: IOHEXOL 350 MG/ML 100ML IJ ONE (18:19)
[2024-07-05] MEDS: methylPREDNISolone SOD SUCC 40 MG/ML VL IV ONE (18:26)
[2024-07-05] MEDS ORDERED: PANTOPRAZOLE 40 MG/10 ML VIAL INJ IV SCH (22:00)
[2024-07-06] VITALS (17 sets, daily range): BP systolic 96–137; BP diastolic 60–81; PULSE 78–100; RESP 16–20; TEMP 97.6–99.2; O2SAT 96–100
[2024-07-06 06:56] LABS: Basophils # (auto) 0.1 10 ^3/uL (0-0.2); Basophils % (auto) 0.6 % (0.0-2.0); Eosinophils # (auto) 0 10 ^3/uL (0-0.8); Eosinophils % (auto) 0.1 % (0.0-7.0); Hematocrit 25.7 % (36.0-46.0); Hemoglobin 8.9 g/dL (12.2-16.2); Lymphocytes # (auto) 1.3 10 ^3/uL (0.4-5.4); Lymphocytes % (auto) 6.9 % (10.0-50.0); Mean Corpuscular Hgb Conc. 34.7 g/dL (32.0-36.0); Mean Corpuscular Volume 86.4 fL (80.0-100.0); Monocytes # (auto) 1.3 10 ^3/uL (0-1.3); Monocytes % (auto) 6.9 % (0.0-12.0); Neutrophils # (auto) 15.8 10 ^3/uL (1.6-8.6); Neutrophils % (auto) 85.5 % (37.0-80.0); Nucleated Red Blood Cells % 0.1 %; Platelet Count (auto) 337 10^3/uL (140-450); Red Blood Cells 2.98 10^6/uL (4.0-5.20); Red Cell Distribution Width 15.5 % (11.8-14.3); White Blood Cell 18.5 10^3/uL (4.4-10.8)
[2024-07-06 07:24] LABS: Chloride 99 mmol/L (98-107); Potassium 4.7 mmol/L (3.5-5.1); Sodium 131 mmol/L (136-145)
[2024-07-06 07:25] LABS: Anion Gap 3 (5-15); Calcium 10.6 mg/dL (8.7-10.4); Carbon Dioxide 29 mmol/L (20-31)
[2024-07-06 07:30] LABS: BUN/Creatinine Ratio 17.8 (10.0-20.0); Blood Urea Nitrogen 23 mg/dL (9-23); Glucose 103 mg/dL (74-106)
[2024-07-06] MEDS: PANTOPRAZOLE 40 MG/10 ML VIAL INJ IV SCH (09:22)
[2024-07-06] MEDS: METOPROLOL SUCCINATE XL 50 MG TAB PO SCH (09:27)
[2024-07-06 14:05] LABS: Basophils # (auto) 0 10 ^3/uL (0-0.2); Basophils % (auto) 0.2 % (0.0-2.0); Eosinophils # (auto) 0 10 ^3/uL (0-0.8); Eosinophils % (auto) 0.3 % (0.0-7.0); Hematocrit 26.3 % (36.0-46.0); Hemoglobin 9.1 g/dL (12.2-16.2); Lymphocytes # (auto) 2.4 10 ^3/uL (0.4-5.4); Lymphocytes % (auto) 13.5 % (10.0-50.0); Mean Corpuscular Hemoglobin 29.5 pg (28.0-32.0); Mean Corpuscular Hgb Conc. 34.4 g/dL (32.0-36.0); Mean Corpuscular Volume 85.8 fL (80.0-100.0); Monocytes # (auto) 0.9 10 ^3/uL (0-1.3); Monocytes % (auto) 5.1 % (0.0-12.0); Neutrophils # (auto) 14.4 10 ^3/uL (1.6-8.6); Neutrophils % (auto) 80.9 % (37.0-80.0); Nucleated Red Blood Cells % 0.1 %; Platelet Count (auto) 386 10^3/uL (140-450); Red Blood Cells 3.07 10^6/uL (4.0-5.20); Red Cell Distribution Width 15.2 % (11.8-14.3); White Blood Cell 17.8 10^3/uL (4.4-10.8)
[2024-07-06 14:25] LABS: Chloride 102 mmol/L (98-107); Potassium 3.7 mmol/L (3.5-5.1); Sodium 134 mmol/L (136-145)
[2024-07-06 14:26] LABS: Anion Gap 4 (5-15); Carbon Dioxide 28 mmol/L (20-31)
[2024-07-06 14:27] LABS: Calcium 10.3 mg/dL (8.7-10.4)
[2024-07-06 14:31] LABS: Glucose 124 mg/dL (74-106)
[2024-07-06 14:32] LABS: BUN/Creatinine Ratio 18.9 (10.0-20.0); Blood Urea Nitrogen 21 mg/dL (9-23)
[2024-07-06] MEDS ORDERED: METO-6 PO (18:24)
[2024-07-06] MEDS ORDERED: NIFE1TAB31 PO (18:24)
[2024-07-06] MEDS ORDERED: PANT40T PO (18:25)
[2024-07-06] MEDS ORDERED: ALBUAER3 IN (18:27)
== END 2024-07-06 21:14 | disposition home or self-care (01) | DRG 177 ==
LOC: EDBD 17:02 → ER 17:02 → TELE 20:39 → TELE-WESTW 22:22
PROVIDERS: ADMIT Internal Medicine; ATTEND Internal Medicine
DX: J15.69 Pneumonia due to other Gram-negative bacteria (principal); J96.21 Acute and chronic respiratory failure with hypoxia; N17.0 Acute kidney failure with tubular necrosis; J45.51 Severe persistent asthma with (acute) exacerbation; J44.1 Chronic obstructive pulmonary disease with (acute) exacerbation; J44.0 Chronic obstructive pulmonary disease with (acute) lower respiratory infection; K92.2 Gastrointestinal hemorrhage, unspecified; J15.9 Unspecified bacterial pneumonia; Z20.822 Contact with and (suspected) exposure to COVID-19; E83.52 Hypercalcemia; E86.0 Dehydration; E87.5 Hyperkalemia; N18.2 Chronic kidney disease, stage 2 (mild); I12.9 Hypertensive chronic kidney disease with stage 1 through stage 4 chronic kidney disease, or unspecified chronic kidney disease; J43.9 Emphysema, unspecified; F12.20 Cannabis dependence, uncomplicated; E83.42 Hypomagnesemia; E03.8 Other specified hypothyroidism; Z90.710 Acquired absence of both cervix and uterus; Z82.5 Family history of asthma and other chronic lower respiratory diseases; Z80.3 Family history of malignant neoplasm of breast; Z80.1 Family history of malignant neoplasm of trachea, bronchus and lung; Z90.721 Acquired absence of ovaries, unilateral; Z87.891 Personal history of nicotine dependence
CPT/HCPCS: 36415; 71045; 71250; 71275; 74176; 76536; 80048; 80053; 80061; 80307; 81001; 82040; 82105; 82270; 82306; 82340; 82378; 82570; 82607; 82962; 83036; 83735; 83880; 83930; 83935; 83970; 84100; 84300; 84439; 84443; 84484; 85007; 85025; 85027; 86301; 87070; 87077; 87186; 87205; 87278; 87426; 87804; 93005; 93306; 93970; 94640; 97110; 97116; 97163; 97530; 99291; G0378; J1815; J2405; J2470

== ENCOUNTER 2024-10-06 10:08 | Inpatient (IN) | payer MEDICARE, MEDICAID ==
[~2024-10-06] VITALS: Ht 157.5 cm; Wt 57.0 kg
[2024-10-06] VITALS (13 sets, daily range): BP systolic 75–153; BP diastolic 40–109; PULSE 82–135; RESP 14–27; TEMP 96.2–98.4; O2SAT 93–100
[~2024-10-06 10:08] MED LIST changes: +ALBUAER3 IN; +LOSA-534 PO; +METO-6 PO; +MONT-8 PO; +NIFE1TAB31 PO; +PANT40T PO; -TRIA75TA11 PO
[2024-10-06] MEDS ORDERED: MORPHINE SULFATE INJ 2 MG/ml SYRG IV PRN (11:00)
--- NOTE | 2024-10-06 11:24 | ED.PDOC ---
HPI Comments Shavonne Vigil is a 64-year-old female patient who presents to ED with chief complaint of stabbing/trans fixating chest pain and back pain intensity 06/22 which started one week ago in functional class IV, associated with nausea vomiting with black emesis in multiple syncopal episodes (last one less than 24 hours ago). Patient reports upper respiratory infection which started in one week and a half ago associated with productive cough with clear phlegm and chills. Denies palpitation, dyspnea, diarrhea, constipation, recent travel, hematuria, dysuria and motor or sensory deficits Past medical history: Hypertension, asthma, hypercalcemia, emphysema, multiple episodes of pneumonia, cannabinoid use Surgical history: Hysterectomy, hernia repair Family history: Noncontributory Social history: Lives with family in [facility]. Ex-smoker, quit approximately one year ago (40 pack-year history of smoking). Consumes gummy CBC. Denies current tobacco, alcohol and other drug abuse Allergies: Fish Home medication: Inhaler, Advil and Excedrin p.r.n. Chief Complaint: Chest Pain Time Seen by MD: 10:24 Primary Care Provider: RAPHAEL Allergies: Uncoded Allergies: shell fish (Allergy, Severe, 06/28/24) Home Meds Active Scripts Albuterol Sulfate (VENTOLIN MDI) 90 Mcg Ih, 90 MCG IN QIDP PRN for 30 Days, #1 INH Prov:JIMY PRICE RESIDENT 07/06/24 Pantoprazole Sodium Sesquihydr (Pantoprazole Sodium) 40 Mg Tab, 40 MG PO DAILY for 30 Days, #30 TAB Prov:JIMY PRICE RESIDENT 07/06/24 Nifedipine (Nifedipine Er) 30 Mg Tab, 60 MG PO DAILY for 30 Days, #60 TAB Prov:JIMY PRICE RESIDENT 07/06/24 Metoprolol Succinate (Toprol Xl) 50 Mg Tab, 25 MG PO DAILY for 30 Days, #30 TAB Prov:JIMY PRICE RESIDENT 07/06/24 Albuterol Sulfate (Ventolin) 2.5 Mg/0.5 Ml Nb, 1 VIAL NEB Q4HR, #60 VIAL 1 Refill Prov:NICANOR RAMESH 01/12/24 Reported Medications Montelukast Sodium (MONTELUKAST SODIUM) 10 Mg Tab, 1 TAB PO 06/26/24 Losartan Potassium (Losartan Potassium) 50 Mg Tab, 1 TAB PO DAILY 06/26/24 Albuterol Sulfate (Albuterol Sulfate Hfa) 108 Mcg/Act Aer, 108 MCG IN PRN, AER 07/24/22 Mode of Arrival: Ambulatory Past Medical History PAST MEDICAL HISTORY: Asthma, HTN 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 Family History Family History: Reviewed,noncontributory to illness Social History Smoker: Non-Smoker Alcohol: Denies ETOH Use Drugs: Other Lives In: Home Physical Exam General Appearance: Severe Distress HEENT: Normal ENT Inspection, Pharynx Normal, TMs Normal Neck: Full Range of Motion, Non-Tender, Normal, Normal Inspection Respiratory: Chest Non-Tender, Lungs Clear, No Accessory Muscle Use, No Respiratory Distress, Normal Breath Sounds Cardiovascular: No Edema, No JVD, No Murmur, No Gallop, Normal Peripheral Pulses, Tachycardia, Other (Tenderness on palpation of subxiphoid area) Breast Exam: Deferred Gastrointestinal: No Organomegaly, Non Tender, No Pulsatile Mass, Normal Bowel Sounds, Soft Genitalia: Deferred Pelvic: Deferred Rectal: Deferred Extremities: No calf tenderness, Normal capillary refill, Normal inspection, Normal range of motion, Non-tender, No pedal edema Neurologic: Alert, 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 Was a procedure done?: No CP Differential Dx Differential Diagnosis: Electrolyte Disorder, Heart Failure, [place], Pulmonary Embolus Differential Diagnosis: Aortic dissection Comment Peptic ulcer disease, pneumonia X-Ray, Labs, Meds, VS Vital Signs Date Time Temp Pulse Resp B/P (MAP) Pulse Ox O2 Delivery O2 Flow Rate FiO2 10/06/24 12:00 97.5 82 14 97/41 (59) 96 97.5 10/06/24 12:00 82 14 96 Room Air* 0 21 10/06/24 11:23 105 10/06/24 10:21 98.5 105 16 105/57 (73) 98 10/06/24 10:15 105 Lab Test 10/06/24 11:18 10/06/24 10:18 Range/Units Lactic Acid Level 1.7 0.4-2.0 mmol/L Troponin I High Sensitivity 15 12 </=34 ng/L White Blood Count 8.6 4.4-10.8 10^3/uL Red Blood Count 2.67 L 4.0-5.20 10^6/uL Hemoglobin 7.6 L 12.2-16.2 g/dL Hematocrit 22.1 L 36.0-46.0 % Mean Corpuscular Volume 82.8 80.0-100.0 fL Mean Corpuscular Hemoglobin 28.4 28.0-32.0 pg Mean Corpuscular Hemoglobin Concent 34.3 32.0-36.0 g/dL Red Cell Distribution Width 15.2 H 11.8-14.3 % Platelet Count 338 140-450 10^3/uL Mean Platelet Volume 9.6 6.9-10.8 fL Neutrophils (%) (Auto) 74.7 37.0-80.0 % Lymphocytes (%) (Auto) 20.8 10.0-50.0 % Monocytes (%) (Auto) 3.6 0.0-12.0 % Eosinophils (%) (Auto) 0.6 0.0-7.0 % Basophils (%) (Auto) 0.3 0.0-2.0 % Neutrophils # (Auto) 6.4 1.6-8.6 10 ^3/uL Lymphocytes # (Auto) 1.8 0.4-5.4 10 ^3/uL Monocytes # (Auto) 0.3 0-1.3 10 ^3/uL Eosinophils # (Auto) 0.1 0-0.8 10 ^3/uL Basophils # (Auto) 0 0-0.2 10 ^3/uL Nucleated Red Blood Cells 0.1 % Prothrombin Time 10.3 9.3-11.8 sec Prothrombin Time INR 0.97 0.9-1.15 Activated Partial Thromboplast Time 20.5 L 24.5-34.5 SEC Sodium Level 137 136-145 mmol/L Potassium Level 2.8 L 3.5-5.1 mmol/L Chloride Level 97 L 98-107 mmol/L Carbon Dioxide Level 34 H 20-31 mmol/L Anion Gap 6 5-15 Blood Urea Nitrogen 62 H 9-23 mg/dL Creatinine 1.52 H 0.550-1.02 mg/dL Glomerular Filtration Rate Calc 38 >90 mL/min BUN/Creatinine Ratio 40.8 H 10.0-20.0 Serum Glucose 155 H 74-106 mg/dL Calcium Level 11.1 H 8.7-10.4 mg/dL Phosphorus Level 1.6 L 2.4-5.1 mg/dL Magnesium Level 1.8 1.6-2.6 mg/dL Total Bilirubin 0.3 0.2-1.0 mg/dL Aspartate Amino Transferase (AST) 15 13-40 U/L Alanine Aminotransferase (ALT) 16 7-40 U/L Alkaline Phosphatase 48 46-116 U/L B-Type Natriuretic Peptide Pending Total Protein 5.7 5.7-8.2 g/dL Albumin 3.5 3.2-4.8 g/dL Lipase 25 12-53 U/L Thyroid Stimulating Hormone (TSH) 0.71 0.55-4.78 uIU/mL Current Medications Medications (Trade) Dose Ordered Sig/Tamie Route Start Time Stop Time Status Last Admin Sodium Chloride 1,500 ml @ 1,500 mls/hr ONCE ONCE IV 10/06/24 12:15 10/06/24 13:14 10/06/24 12:17 X-Ray, Labs, Meds, VS Comment Patient presented low blood pressure, can not give morphine. Indicated IV fluids (bolus of 500 mL of normal saline. Hemoglobin 7.6 (periods 9.). Pending rest of laboratory results. Time of 1ST Reevaluation: 12:26 Reevaluation 1ST: Unchanged Patient Education/Counseling: Diagnosis, Treatment, Prognosis Family Education/Counseling: Diagnosis, Treatment, Prognosis Departure 1 Departure Time of Disposition: 12:34 Impression: Primary Impression: Peptic ulcer disease with hemorrhage Disposition: ADMITTED INPATIENT Condition: Serious Additional Instructions: Patient presents hypotension probably secondary to hypovolemic shock, probably secondary to peptic ulcer disease (patient was on NSAIDs, and received multiple courses of steroids). Indicated IV fluids, IV Protonix and transfusion of 1 unit of blood. Pending abdominal pelvis CT with no contrast. Critical Care Note Critical Care Time?: No Stability Stability form required: No Heart Score Heart Score: Heart Score Response (Comments) Value History Slightly Suspicious 0 EKG Repolarization Disturb 1 Age >65 2 Risk Factors 1 or 2 risk factors 1 Troponin N/A 0 Total 4 QUIN HAN RESIDENT Oct 06, 2024 11:24
[2024-10-06 11:26] LABS: Basophils # (auto) 0 10 ^3/uL (0-0.2); Basophils % (auto) 0.3 % (0.0-2.0); Eosinophils # (auto) 0.1 10 ^3/uL (0-0.8); Eosinophils % (auto) 0.6 % (0.0-7.0); Hematocrit 22.1 % (36.0-46.0); Hemoglobin 7.6 g/dL (12.2-16.2); Mean Corpuscular Hgb Conc. 34.3 g/dL (32.0-36.0); Nucleated Red Blood Cells % 0.1 %
[2024-10-06 11:27] LABS: Lymphocytes # (auto) 1.8 10 ^3/uL (0.4-5.4); Lymphocytes % (auto) 20.8 % (10.0-50.0); Mean Corpuscular Hemoglobin 28.4 pg (28.0-32.0); Mean Corpuscular Volume 82.8 fL (80.0-100.0); Monocytes # (auto) 0.3 10 ^3/uL (0-1.3); Monocytes % (auto) 3.6 % (0.0-12.0); Neutrophils # (auto) 6.4 10 ^3/uL (1.6-8.6); Neutrophils % (auto) 74.7 % (37.0-80.0); Platelet Count (auto) 338 10^3/uL (140-450); Red Blood Cells 2.67 10^6/uL (4.0-5.20); Red Cell Distribution Width 15.2 % (11.8-14.3); White Blood Cell 8.6 10^3/uL (4.4-10.8)
[2024-10-06 11:44] LABS: INR 0.97 (0.9-1.15); Partial Thromboplastin Time 20.5 SEC (24.5-34.5); Prothrombin Time 10.3 sec (9.3-11.8)
[2024-10-06 11:50] LABS: Alanine Aminotransferase 16 U/L (7-40); Alkaline Phosphatase 48 U/L (46-116); Anion Gap 6 (5-15); Aspartate Aminotransferase 15 U/L (13-40); BUN/Creatinine Ratio 40.8 (10.0-20.0); Lipase 25 U/L (12-53); Magnesium 1.8 mg/dL (1.6-2.6); Sodium 137 mmol/L (136-145)
[2024-10-06 11:51] LABS: Albumin 3.5 g/dL (3.2-4.8); Bilirubin, Total 0.3 mg/dL (0.2-1.0); Total Protein 5.7 g/dL (5.7-8.2)
--- NOTE | 2024-10-06 11:53 | DVH ---
CHEST RADIOGRAPH Indication: Chest pain Technique: Portable upright AP view of the chest was performed. COMPARISON: XY CHEST PORTABLE on DOS: 06/26/24, XY CHEST PORTABLE on DOS: 01/17/24, XY CHEST PORTABLE o n DOS: 01/12/24, CXRP on DOS: 07/25/22, CHEST PORTABLE on DOS: 07/25/22, CT scan of the chest dated . FINDINGS: No pneumothorax, pulmonary edema, or consolidative infiltrates. There is central peribronchial thicke cathleen. Emphysematous changes are better characterized on prior CT scan. The heart is upper limits of normal in size. The central pulmonary arteries are ectatic, better characterized on prior CT scan. IMPRESSION: 1. Emphysema and reactive airways disease. 2. Pulmonary arterial hypertension and borderline cardiomegaly.
[2024-10-06] MEDS ORDERED: methylPREDNISolone SOD SUCC 40 MG/ML VL IV ONE (12:15)
[2024-10-06 12:16] LABS: Blood Urea Nitrogen 62 mg/dL (9-23); Calcium 11.1 mg/dL (8.7-10.4); Carbon Dioxide 34 mmol/L (20-31); Chloride 97 mmol/L (98-107); Glucose 155 mg/dL (74-106); Phosphorus 1.6 mg/dL (2.4-5.1); Potassium 2.8 mmol/L (3.5-5.1)
[2024-10-06] MEDS: MORPHINE SULFATE INJ 2 MG/ml SYRG IM ONE (12:16)
[2024-10-06] MEDS: SODIUM CHLORIDE 0.9% 1,500 ML IV ONE (12:17)
[2024-10-06] MEDS: SODIUM CHLORIDE 0.9% 1,000 ML IV SCH ×2 (12:30→17:15)
[2024-10-06] MEDS: PANTOPRAZOLE 40 MG/10 ML VIAL INJ IV ONE (12:50)
--- NOTE | 2024-10-06 12:51 | DVH ---
Carotid Duplex Date: 10/06/2024 12:22 PM Clinical History: Syncope Comparison: US CAROTID DUPLX W COLOR DOP on DOS: 01/17/24 Technique: Duplex Doppler evaluation of the extracranial carotid and vertebral arteries including color Doppler and spectral/pulsed waveform analysis was performed. Findings: Velocities and ratios within normal limits. Antegrade vertebral artery flow. IMPRESSION: No hemodynamically significant stenosis noted in the right carotid system. No hemodynamically significant stenosis noted in the left carotid system. Reference: Radiology 2003; 229:340-346
--- NOTE | 2024-10-06 12:54 | ECG ---
[facility] Test Date: 2024-10-06 Test Time: 10:15:01 Pat Name: BAUTISTA HERNANDEZ Department: ER Room: Gender: F Science Liaison: ASPEN : 1960 Requested By: GIACOMO PRO Order Number: [id number] Reading MD: Timi Valencia Measurements Intervals [place] Rate: 105 P: 94 CO: 151 QRS: 81 QRSD: 85 T: 53 QT: 406 QTc: 537 Interpretive Statements Sinus tachycardia Probable left atrial enlargement Borderline right axis deviation Anteroseptal infarct, old Minimal ST depression, lateral leads Prolonged QT interval Electronically Signed On 10-06-2024 17:23:11 PST by Timi Valencia Please click the below link to view image of tracing.
--- NOTE | 2024-10-06 12:54 | ECG ---
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
[2024-10-06] MEDS: IPRATROPIUM BROM 0.5 MG/2.5ML INH SOL NEB ONE (12:57)
--- NOTE | 2024-10-06 13:00 | DVH ---
CT ABDOMEN AND PELVIS WITHOUT CONTRAST CLINICAL HISTORY: Chest pain, probable PUD TECHNIQUE: Multiple contiguous axial images of the abdomen and pelvis without intravenous contrast. The images were reformatted degenerate coronal and sagittal reconstructions. All CT scans at this medical facility are performed using dose modulation techniques as appropriate t o a performed exam including the following:Automated exposure control was utilized; adjustment of the MA and/or KV according to patient size; and use of iterative reconstruction technique. Radiation Dose Information: CT Dose: CTDI volume is 5.07 mGy. Dose-length product is 203.98 mGy*cm Comparison: CT CT AB PEL WITH ORAL CON ONLY on DOS: 07/03/24, ECIDC on DOS: 07/23/22 FINDINGS: Evaluation of the abdomen and pelvis is limited without intravenous contrast. The liver, gallbladder, pancreas, kidneys, adrenal glands, and spleen appear within normal limits. There is no gross evidence of abdominal lymphadenopathy. There is no free fluid or free air. The stomach grossly appears unremarkable. The small and large bowel loops demonstrate normal caliber and appear within normal limits.. Calcified atherosclerotic changes in the abdominal aorta. The IVC appears within normal limits. The bladder appears unremarkable for the degree of distention. Uterus is surgically absent.. There i s no gross evidence of a pelvic mass. There is no free fluid collection. Lung bases are clear. There is no acute osseous abnormality. IMPRESSION: 1. There is no acute process in the abdomen and pelvis. HS:Y
[2024-10-06 13:22] LABS: % Iron Saturation 12.7 % (15-50)
[2024-10-06 13:25] LABS: Folate (Folic Acid) 10.47 ng/mL (>5.38)
[2024-10-06] MEDS ORDERED: ONDANSETRON HCL 4 MG/2 ML VIAL IV PRN ×2 (13:45→17:15)
[2024-10-06] MEDS: ONDANSETRON HCL 4 MG/2 ML VIAL IV ONE (13:54)
--- NOTE | 2024-10-06 15:12 | ECG ---
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
[2024-10-06] MEDS: IPRATROPIUM BROM 0.5 MG/2.5ML INH SOL NEB SCH (15:16)
[2024-10-06] MEDS ORDERED: ACETAMINOPHEN 325 MG TAB PO PRN (17:15)
--- NOTE | 2024-10-06 17:23 | DVHHP2 ---
History of Present Illness Reason for Visit: Epigastric pain History of Present Illness Shavonne Rajan is a 64-year-old female with past medical history of hypertension, asthma, hysterectomy, and hernia repair who presents to the ED with nausea, vomiting black emesis, and epigastric pain 10/10 throbbing and intermittent that radiates to her back. Patient denies any recent ingestion of spoiled food, recent travels, denies chest pain, shortness of breath, diarrhea, lightheadedness, and dizziness. Patient reports upper respiratory infection x1 week ago with cough, productive phlegm, and chills. Patient states she did not have any treatments for that. Cardiovascular: HTN Pulmonary: Asthma Past Surgical History: Hysterectomy, Hernia Repair Family History: Cancer, Other (Dad with asthma and lung cancer) Smoke: Quit ALCOHOL: none Lives: with Family Domestic Violence: Neg Review of Systems Constitutional: No: Fever, Chills, Sweats, Weakness, Malaise, Other Eyes: No: Pain, Vision change, Conjunctivae inflammation, Eyelid inflammation, Other, Redness ENT: No: Ear pain, Ear discharge, Nose pain, Nose discharge, Nose congestion, Mouth pain, Mouth swelling, Throat pain, Throat swelling, Other Respiratory: Cough, Sputum; No: Dry, Shortness of breath, SOB with excertion, Wheezing, Hemoptysis, Pleuritic Pain, Wheezing, Other Cardiovascular: No: Chest Pain, Palpitations, Orthopnea, Paroxysmal Noc. Dyspnea, Edema, Lt Headedness, Other Gastrointestinal: Nausea, Vomiting, Abdominal Pain, Other (Hematemesis); No: Diarrhea, Constipation, Melena, Hematochezia Genitourinary: No Dysuria, No Frequency, No Incontinence, No Hematuria, No Retention, No Other Musculoskeletal: back pain; No: other, neck pain, shoulder pain, arm pain, hand pain, leg pain, foot pain Skin: No: Rash, Lesions, Jaundice, Bruising, Other Neurological: No: Weakness, Numbness, Incoordination, Change in speech, Confusion, Seizures, Other Allergies: Uncoded Allergies: shell fish (Allergy, Severe, 06/28/24) Medications Current Medications Medications Dose Ordered Sig/Tamie Route Start Time Stop Time Status Last Admin Dose Admin Morphine Sulfate 1 mg Q3HP PRN IV 10/06/24 11:00 Ipratropium [place] 0.5 mg Q4HWA NEB 10/06/24 14:00 10/06/24 15:16 0.5 MG Pantoprazole Sodium 40 mg BID IV 10/06/24 22:00 Sodium Chloride 1,000 ml @ 100 mls/hr Q10H IV 10/06/24 12:15 10/06/24 12:30 100 MLS/HR Potassium Chloride 100 ml @ 50 mls/hr Q2H IV 10/06/24 13:45 10/06/24 17:44 Ondansetron HCl 4 mg Q4HPRN PRN IV 10/06/24 13:45 Exam Vital Signs Vital Signs Date Time Temp Pulse Resp B/P (MAP) Pulse Ox O2 Delivery O2 Flow Rate FiO2 10/06/24 15:22 85 16 100 10/06/24 15:16 Room Air 0.0 10/06/24 15:16 21 10/06/24 13:25 159/109 10/06/24 13:23 97.9 97.9 General Appearance: Alert, Oriented X3, Cooperative, No acute distress HEENT: Atraumatic, PERRLA, EOMI, Mucous membr. moist/pink Respiratory: Clear to auscultation, Normal air movement Cardiovascular: Normal S1, Normal S2, No murmurs Abdominal: Soft, No hepatospenomegaly, No masses Extremities: No clubbing, No cyanosis, No edema, Normal pulses, No tenderness/swelling Skin: No breakdown, No significant lesion Neuro: Normal speech, Strength at 5/5 X4 ext, Normal tone, Sensation intact Psych/Mental Status: Mental status NL, Mood NL Labs/Xrays Labs Test 10/06/24 13:30 10/06/24 11:18 10/06/24 10:18 Range/Units Reticulocyte Count (auto) 1.82 H 0.5-1.5 % Troponin I High Sensitivity 51 *H </=34 ng/L Lactic Acid Level 1.7 0.4-2.0 mmol/L White Blood Count 8.6 4.4-10.8 10^3/uL Red Blood Count 2.67 L 4.0-5.20 10^6/uL Hemoglobin 7.6 L 12.2-16.2 g/dL Hematocrit 22.1 L 36.0-46.0 % Mean Corpuscular Volume 82.8 80.0-100.0 fL Mean Corpuscular Hemoglobin 28.4 28.0-32.0 pg Mean Corpuscular Hemoglobin Concent 34.3 32.0-36.0 g/dL Red Cell Distribution Width 15.2 H 11.8-14.3 % Platelet Count 338 140-450 10^3/uL Mean Platelet Volume 9.6 6.9-10.8 fL Neutrophils (%) (Auto) 74.7 37.0-80.0 % Lymphocytes (%) (Auto) 20.8 10.0-50.0 % Monocytes (%) (Auto) 3.6 0.0-12.0 % Eosinophils (%) (Auto) 0.6 0.0-7.0 % Basophils (%) (Auto) 0.3 0.0-2.0 % Neutrophils # (Auto) 6.4 1.6-8.6 10 ^3/uL Lymphocytes # (Auto) 1.8 0.4-5.4 10 ^3/uL Monocytes # (Auto) 0.3 0-1.3 10 ^3/uL Eosinophils # (Auto) 0.1 0-0.8 10 ^3/uL Basophils # (Auto) 0 0-0.2 10 ^3/uL Nucleated Red Blood Cells 0.1 % Prothrombin Time 10.3 9.3-11.8 sec Prothrombin Time INR 0.97 0.9-1.15 Activated Partial Thromboplast Time 20.5 L 24.5-34.5 SEC Sodium Level 137 136-145 mmol/L Potassium Level 2.8 L 3.5-5.1 mmol/L Chloride Level 97 L 98-107 mmol/L Carbon Dioxide Level 34 H 20-31 mmol/L Anion Gap 6 5-15 Blood Urea Nitrogen 62 H 9-23 mg/dL Creatinine 1.52 H 0.550-1.02 mg/dL Glomerular Filtration Rate Calc 38 >90 mL/min BUN/Creatinine Ratio 40.8 H 10.0-20.0 Serum Glucose 155 H 74-106 mg/dL Calcium Level 11.1 H 8.7-10.4 mg/dL Phosphorus Level 1.6 L 2.4-5.1 mg/dL Magnesium Level 1.8 1.6-2.6 mg/dL Iron Level 39 L 50-170 ug/dL Total Iron Binding Capacity 306 250-425 ug/dL Percent Iron Saturation 12.7 L 15-50 % Total Bilirubin 0.3 0.2-1.0 mg/dL Aspartate Amino Transferase (AST) 15 13-40 U/L Alanine Aminotransferase (ALT) 16 7-40 U/L Alkaline Phosphatase 48 46-116 U/L Lactate Dehydrogenase 134 120-246 U/L B-Type Natriuretic Peptide 16.93 0-100 pg/mL Total Protein 5.7 5.7-8.2 g/dL Albumin 3.5 3.2-4.8 g/dL Lipase 25 12-53 U/L Vitamin B12 Level 1213 H 211-911 pg/mL Folic Acid 10.47 >5.38 ng/mL Thyroid Stimulating Hormone (TSH) 0.71 0.55-4.78 uIU/mL CT ABDOMEN AND PELVIS WITHOUT CONTRAST CLINICAL HISTORY: Chest pain, probable PUD TECHNIQUE: Multiple contiguous axial images of the abdomen and pelvis without intravenous contrast. The images were reformatted degenerate coronal and sagittal reconstructions. All CT scans at this medical facility are performed using dose modulation techniques as appropriate to a performed exam including the following:Automated exposure control was utilized; adjustment of the MA and/or KV according to patient size; and use of iterative reconstruction technique. Radiation Dose Information: CT Dose: CTDI volume is 5.07 mGy. Dose-length product is 203.98 mGy*cm Comparison: CT CT AB PEL WITH ORAL CON ONLY on DOS: 07/03/24, ECIDC on DOS: 07/23/22 FINDINGS: Evaluation of the abdomen and pelvis is limited without intravenous contrast. The liver, gallbladder, pancreas, kidneys, adrenal glands, and spleen appear within normal limits. There is no gross evidence of abdominal lymphadenopathy. There is no free fluid or free air. The stomach grossly appears unremarkable. The small and large bowel loops demonstrate normal caliber and appear within normal limits.. Calcified atherosclerotic changes in the abdominal aorta. The IVC appears within normal limits. The bladder appears unremarkable for the degree of distention. Uterus is surgically absent.. There is no gross evidence of a pelvic mass. There is no free fluid collection. Lung bases are clear. There is no acute osseous abnormality. IMPRESSION: 1. There is no acute process in the abdomen and pelvis. Carotid Duplex Date: 10/06/2024 12:22 PM Clinical History: Syncope Comparison: US CAROTID DUPLX W COLOR DOP on DOS: 01/17/24 Technique: Duplex Doppler evaluation of the extracranial carotid and vertebral arteries including color Doppler and spectral/pulsed waveform analysis was performed. Findings: Velocities and ratios within normal limits. Antegrade vertebral artery flow. IMPRESSION: No hemodynamically significant stenosis noted in the right carotid system. No hemodynamically significant stenosis noted in the left carotid system. CHEST RADIOGRAPH Indication: Chest pain Technique: Portable upright AP view of the chest was performed. COMPARISON: XY CHEST PORTABLE on DOS: 06/26/24, XY CHEST PORTABLE on DOS: 01/17/24, XY CHEST PORTABLE on DOS: 01/12/24, CXRP on DOS: 07/25/22, CHEST PORTABLE on DOS: 07/25/22, CT scan of the chest dated 07/05/2024. FINDINGS: No pneumothorax, pulmonary edema, or consolidative infiltrates. There is central peribronchial thickening. Emphysematous changes are better characterized on prior CT scan. The heart is upper limits of normal in size. The central pulmonary arteries are ectatic, better characterized on prior CT scan. IMPRESSION: 1. Emphysema and reactive airways disease. 2. Pulmonary arterial hypertension and borderline cardiomegaly. Assessment/Plan Assessment/Plan Assessment/Plan: Intractable epigastric pain rule out GI bleed Intractable epigastric pain Probable due to Peptic ulcer disease with hemorrhage Anemia probable iron-deficiency anemia Hypokalemia Replete lytes A.m. labs Labs REJI Antiemetics Pain management Protonix given ED Respiratory treatments NS bolus in ED CT abdomen and pelvis Acid Reviewed MV B12 Lactic Reticulocyte count Iron panel Type and screen Transfuse PRBCs if hemoglobin less than 7.0 Carotid duplex noted Troponin Chest x-ray Drug Lipase Mag level TSH UA Phos PT/PTT EKG Troponin IV antibiotics ceftriaxone Stool occult Flu panel COVID panel GI consult Rounding team to decide if Nephro consult necessary if creatinine does not improve Rounding team to decide if cardiac structural changes to consult Cardiology Chronic hypertension Continue home medications Chronic asthma P.r.n. 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 Procedure Category Date Status Time Rapid Influenza A&B LAB 10/06/24 Logged 15:14 Covid19 Antigen Vicky LAB 10/06/24 Logged Stool Occult Blood LAB 10/06/24 Logged 15:14 Admit ADMIT 10/06/24 Transmitted 17:01 Allergies KIRK 10/06/24 Transmitted 17:01 Code Status CODE 10/06/24 Transmitted 17:01 0.9% Ns 1000 Ml PHA 10/06/24 Transmitted 17:15 Hydrocodone-Acet PHA 10/06/24 Transmitted 5/325mg Tab ([place] 17:15 Ondansetron Hcl PHA 10/06/24 Transmitted (Zofran) 17:15 Complete Blood Count LAB 10/07/24 Verified 04:00 Comprehensive LAB 10/07/24 Verified Metabolic Panel 04:00 Acetaminophen Tablet PHA 10/06/24 Transmitted (Tylenol Tablet) 17:15 Morphine Sulfate PHA 10/06/24 Transmitted Injection 17:15 Date of Service: Oct 06, 2024 Billing Provider: SOCO ESPARZA Common Visit Codes: 04508-[id number] INP/OBS CARE (HIGH) SOCO ESPARZA Oct 06, 2024 17:23
[2024-10-06 17:36] LABS: Rapid Influenza A Negative (Negative); Rapid Influenza B Negative (Negative)
[2024-10-06 17:37] LABS: COVID19 ANTIGEN SOFIA FIA NEGATIVE (NEGATIVE)
[2024-10-06 18:03] LABS: Urine Bacteria None Seen /hpf (None Seen)
[2024-10-06 18:13] LABS: Basophils # (auto) 0 10 ^3/uL (0-0.2); Eosinophils # (auto) 0 10 ^3/uL (0-0.8); Neutrophils # (auto) 9.9 10 ^3/uL (1.6-8.6)
[2024-10-06 18:14] LABS: Basophils % (auto) 0.1 % (0.0-2.0); Hematocrit 17.6 % (36.0-46.0); Lymphocytes # (auto) 1.3 10 ^3/uL (0.4-5.4); Lymphocytes % (auto) 11.3 % (10.0-50.0); Mean Corpuscular Hemoglobin 28.3 pg (28.0-32.0); Mean Corpuscular Hgb Conc. 34.1 g/dL (32.0-36.0); Mean Corpuscular Volume 83.1 fL (80.0-100.0); Monocytes # (auto) 0.3 10 ^3/uL (0-1.3); Monocytes % (auto) 2.9 % (0.0-12.0); Neutrophils % (auto) 85.7 % (37.0-80.0); Nucleated Red Blood Cells % 0.1 %; Platelet Count (auto) 264 10^3/uL (140-450); Red Blood Cells 2.11 10^6/uL (4.0-5.20); White Blood Cell 11.6 10^3/uL (4.4-10.8)
[2024-10-06 18:22] LABS: Urine Blood Negative /uL (Negative); Urine Clarity Clear (Clear); Urine Color Light-Yellow (Yellow); Urine Protein, UAD Negative (Negative); Urine Specific Gravity 1.015 (1.001-1.035); Urine Squamous Epithelial Cell FEW /hpf (<5); Urine Urobilinogen Normal (Negative); Urine WBC 1 /HPF (0-5)
[2024-10-06 18:24] LABS: Magnesium 1.8 mg/dL (1.6-2.6)
[2024-10-06 18:24] LABS: Opiate Scree,Urine Neg (NEGATIVE)
[2024-10-06 18:26] LABS: Phosphorus 3.3 mg/dL (2.4-5.1)
[2024-10-06 18:30] LABS: Amphetamine Screen, Urine Neg (NEGATIVE); Barbiturate Scree,Urine Neg (NEGATIVE); Benzodiazephine Screen, Urine Neg (NEGATIVE); Cocaine Screen, Urine Neg (NEGATIVE); Phencyclidine Screen, Urine Neg (NEGATIVE)
[2024-10-06 18:30] LABS: Potassium 3.1 mmol/L (3.5-5.1)
[2024-10-06 18:31] LABS: Cannabinoid Screen, Urine Pos (NEGATIVE)
[2024-10-06] MEDS ORDERED: methylPREDNISolone SOD SUCC 40 MG/ML VL IV SCH (22:00)
[2024-10-07] VITALS (25 sets, daily range): BP systolic 98–132; BP diastolic 54–81; PULSE 86–104; RESP 16–22; TEMP 96.3–98.4; O2SAT 96–100
[2024-10-07] MEDS: POTASSIUM CHL 20MEQ/100ML 100 ML IV SCH ×2 (02:00→02:01)
[2024-10-07] MEDS: POTASSIUM PHOSPHATE 22 MEQ in SODIUM CHL 0.9% 100 ML IV ONE (02:01)
[2024-10-07] MEDS: POTASSIUM CHL 20MEQ/100ML 100 ML IV ONE (04:29)
[2024-10-07] MEDS: PANTOPRAZOLE 40 MG/10 ML VIAL INJ IV SCH (04:35)
[2024-10-07 08:15] LABS: Basophils # (auto) 0 10 ^3/uL (0-0.2); Eosinophils # (auto) 0 10 ^3/uL (0-0.8); Mean Corpuscular Hemoglobin 27.3 pg (28.0-32.0); Monocytes # (auto) 0.5 10 ^3/uL (0-1.3)
[2024-10-07 08:17] LABS: Basophils % (auto) 0.1 % (0.0-2.0); Hematocrit 21.2 % (36.0-46.0); Hemoglobin 7.3 g/dL (12.2-16.2); Lymphocytes % (auto) 7.3 % (10.0-50.0); Mean Corpuscular Hgb Conc. 34.2 g/dL (32.0-36.0); Mean Corpuscular Volume 79.9 fL (80.0-100.0); Monocytes % (auto) 3.4 % (0.0-12.0); Neutrophils # (auto) 11.8 10 ^3/uL (1.6-8.6); Neutrophils % (auto) 89.2 % (37.0-80.0); Nucleated Red Blood Cells % 0.1 %; Platelet Count (auto) 128 10^3/uL (140-450); Red Blood Cells 2.66 10^6/uL (4.0-5.20); Red Cell Distribution Width 16.6 % (11.8-14.3); White Blood Cell 13.2 10^3/uL (4.4-10.8)
[2024-10-07 08:22] LABS: Alanine Aminotransferase 18 U/L (7-40); Anion Gap 7 (5-15); Aspartate Aminotransferase 21 U/L (13-40); BUN/Creatinine Ratio 45.3 (10.0-20.0); Calcium 9.1 mg/dL (8.7-10.4); Carbon Dioxide 30 mmol/L (20-31); Chloride 106 mmol/L (98-107); Potassium 3.6 mmol/L (3.5-5.1); Sodium 143 mmol/L (136-145)
[2024-10-07 08:23] LABS: Bilirubin, Total 0.3 mg/dL (0.2-1.0)
[2024-10-07 08:33] LABS: Glucose 132 mg/dL (74-106)
[2024-10-07 08:36] LABS: Albumin 2.4 g/dL (3.2-4.8); Alkaline Phosphatase 30 U/L (46-116); Blood Urea Nitrogen 87 mg/dL (9-23); Total Protein 3.8 g/dL (5.7-8.2)
--- NOTE | 2024-10-07 13:09 | DVHINCON2 ---
GI Consult Consult Note Date of Consultation: October 07, 2024 Chief Complaint: Hematemesis Referring Physician: Brian JIMENEZ H&P: The patient is a 64-year-old female with hypertension, asthma, history of hernia repair, history of hysterectomy, admitted with multiple bouts of hematemesis and sharp epigastric abdominal pain. The pain has resolved. Patient has had no further episodes of hematemesis. She states that she has not been taking any aspirin or NSAIDs, she denies any dysphagia or odynophagia. She denies any melena or hematochezia. Patient was found to be anemic and a significant drop from prior hemoglobin. A GI consultation was obtained for evaluation. Past medical history: As above Past surgical history as above Family history: no gastrointestinal diseases or malignancies Social history: Prior tobacco use no alcohol or recreational drug use Current Medications Medications (Trade) Dose Ordered Sig/Tamie Route PRN Reason Start Time Stop Time Status Last Admin Methylprednisolone Sodium Succinate (Solu Medrol) 20 mg BID IV 10/06/24 22:00 10/06/24 12:15 DC Ipratropium [place] (Atrovent Medneb) 0.5 mg Q4HWA NEB 10/06/24 14:00 10/07/24 10:13 Pantoprazole Sodium (Protonix) 40 mg BID IV 10/06/24 22:00 Potassium Chloride 100 ml @ 50 mls/hr Q2H IV 10/06/24 13:45 10/06/24 17:44 DC Ondansetron HCl (Zofran) 4 mg Q4HPRN PRN IV NAUSEA / VOMITING 10/06/24 13:45 10/06/24 17:48 DC Sodium Chloride 1,000 ml @ 60 mls/hr [id number] IV 10/06/24 17:15 Acetaminophen/ Hydrocodone Bitart ([place] 5/325MG Tab) 1 tab Q4HP PRN PO MODERATE PAIN (4-6 PAIN SCALE) 10/06/24 17:15 Ondansetron HCl (Zofran) 4 mg Q4HP PRN IV NAUSEA / VOMITING 10/06/24 17:15 Acetaminophen (Tylenol Tablet) 650 mg Q6HP PRN PO PAIN SCALE 1-3 OR TEMP>100.4 10/06/24 17:15 Morphine Sulfate 2 mg Q4HPRN PRN IV SEVERE PAIN (7-10 PAIN SCALE) 10/06/24 17:15 Potassium Chloride 100 ml @ 50 mls/hr Q2H IV 10/06/24 18:45 10/07/24 00:44 DC Review of Systems: Constitutional: no fever, chill, weight loss HEENT: no eye pain, no hearing loss, no oral lesion, no scleral icterus Heart: no chest pain, no chest pressure Lung: History of asthma Abdomen: see HPI : no pain with urination, normal appearing urine Musculoskeletal: no joint pain, no muscle pain Neurological: no seizure, no loss of sensation, no weakness in extremities Pysch: no depression, no anxiety Derm: no rash, no jaundice Vital Signs Date Time Temp Pulse Resp B/P (MAP) Pulse Ox O2 Delivery O2 Flow Rate FiO2 10/07/24 10:19 95 18 100 10/07/24 10:13 Nasal Cannula 2.0 10/07/24 10:13 28 10/07/24 09:00 98.3 132/56 (81) 98.3 Physical exam: General: NAD, AAOX3 HEENT: PERRL, no scleral icterus, normal hearing, gums without lesions or bleeding, oropharynx clear without erythema or exudate. Neck: Supple without enlargement of the thyroid, or lymphadenopathy. Chest: Normal size and shape, no tenderness, lung [place] clear to auscultation and percussion, nonlabored breathing. Heart: RRR, no murmur Abdomen: non-distended, no tenderness to palpation, +BS, no hepatosplenomegaly Extremities: no edema, no cyanosis Neurological: CN II-XII intact, sensation intact in all extremities, 5+ strength in all extremities, no asterixis Skin: No rashes, No jaundice Labs: Labs Test 10/07/24 07:42 10/06/24 17:37 10/06/24 17:35 10/06/24 17:00 Range/Units White Blood Count 13.2 H 4.4-10.8 10^3/uL Red Blood Count 2.66 L 4.0-5.20 10^6/uL Hemoglobin 7.3 #L 12.2-16.2 g/dL Hematocrit 21.2 #L 36.0-46.0 % Mean Corpuscular Volume 79.9 L 80.0-100.0 fL Mean Corpuscular Hemoglobin 27.3 L 28.0-32.0 pg Mean Corpuscular Hemoglobin Concent 34.2 32.0-36.0 g/dL Red Cell Distribution Width 16.6 H 11.8-14.3 % Platelet Count 128 L 140-450 10^3/uL Mean Platelet Volume 9.1 6.9-10.8 fL Neutrophils (%) (Auto) 89.2 H 37.0-80.0 % Lymphocytes (%) (Auto) 7.3 L 10.0-50.0 % Monocytes (%) (Auto) 3.4 0.0-12.0 % Eosinophils (%) (Auto) 0.0 0.0-7.0 % Basophils (%) (Auto) 0.1 0.0-2.0 % Neutrophils # (Auto) 11.8 H 1.6-8.6 10 ^3/uL Lymphocytes # (Auto) 1.0 0.4-5.4 10 ^3/uL Monocytes # (Auto) 0.5 0-1.3 10 ^3/uL Eosinophils # (Auto) 0 0-0.8 10 ^3/uL Basophils # (Auto) 0 0-0.2 10 ^3/uL Nucleated Red Blood Cells 0.1 % Sodium Level 143 # 136-145 mmol/L Potassium Level 3.6 3.5-5.1 mmol/L Chloride Level 106 98-107 mmol/L Carbon Dioxide Level 30 20-31 mmol/L Anion Gap 7 5-15 Blood Urea Nitrogen 87 #*H 9-23 mg/dL Creatinine 1.92 H 0.550-1.02 mg/dL Glomerular Filtration Rate Calc 29 >90 mL/min BUN/Creatinine Ratio 45.3 H 10.0-20.0 Serum Glucose 132 H 74-106 mg/dL Calcium Level 9.1 8.7-10.4 mg/dL Total Bilirubin 0.3 0.2-1.0 mg/dL Aspartate Amino Transferase (AST) 21 13-40 U/L Alanine Aminotransferase (ALT) 18 7-40 U/L Alkaline Phosphatase 30 L 46-116 U/L Total Protein 3.8 L 5.7-8.2 g/dL Albumin 2.4 L 3.2-4.8 g/dL Phosphorus Level 3.3 2.4-5.1 mg/dL Magnesium Level 1.8 1.6-2.6 mg/dL Troponin I High Sensitivity 169 *H </=34 ng/L Urine Color Light-yellow Yellow Urine Clarity Clear Clear Urine pH 5.0 5.0-9.0 Urine Specific [place] 1.015 1.001-1.035 Urine Protein Negative Negative Urine Ketones Negative Negative Urine Blood Negative Negative /uL Urine Nitrite Negative Negative Urine Bilirubin Negative Negative Urine Urobilinogen Normal Negative mg/dL Urine Leukocyte Esterase Negative Negative /uL Urine RBC 2 0 - 4 /hpf Urine Microscopic WBC 1 0-5 /HPF Urine Squamous Epithelial Cells Few <5 /hpf Urine Bacteria None seen None Seen /hpf Urine Glucose Normal Normal mg/dL Urine Opiates Screen Neg NEGATIVE Urine Fentanyl Screen Neg NEGATIVE Urine Barbiturates Screen Neg NEGATIVE Urine Phencyclidine Screen Neg NEGATIVE Urine Amphetamines Screen Neg NEGATIVE Urine Benzodiazepines Screen Neg NEGATIVE Urine Cocaine Screen Neg NEGATIVE Urine Cannabinoids Screen Pos NEGATIVE Influenza Type A Antigen Negative Negative Influenza Type B Antigen Negative Negative SARS-CoV-2 Antigen (Rapid) Negative NEGATIVE Test 10/06/24 13:30 10/06/24 11:18 10/06/24 10:18 Range/Units Reticulocyte Count (auto) 1.82 H 0.5-1.5 % Lactic Acid Level 1.7 0.4-2.0 mmol/L Prothrombin Time 10.3 9.3-11.8 sec Prothrombin Time INR 0.97 0.9-1.15 Activated Partial Thromboplast Time 20.5 L 24.5-34.5 SEC Iron Level 39 L 50-170 ug/dL Total Iron Binding Capacity 306 250-425 ug/dL Percent Iron Saturation 12.7 L 15-50 % Lactate Dehydrogenase 134 120-246 U/L B-Type Natriuretic Peptide 16.93 0-100 pg/mL Lipase 25 12-53 U/L Vitamin B12 Level 1213 H 211-911 pg/mL Folic Acid 10.47 >5.38 ng/mL Thyroid Stimulating Hormone (TSH) 0.71 0.55-4.78 uIU/mL Parathyroid Hormone (Intact) 270.0 H 18.4-80.1 pg/mL Imaging: No acute GI findings Assessment: 1. Hematemesis 2. GI bleeding 3. Anemia 4. Epigastric pain Differential diagnosis includes peptic ulcer disease versus erosive gastritis versus mass versus arteriovenous malformation Plan: 1. Continue with current medications 2. NPO after midnight 3. Clear liquid diet 4. Follow H&H 5. EGD tomorrow consent will be obtained. Date of Service: Oct 07, 2024 Billing Provider: INA ORNELAS MD Common Visit Codes: [id number] INP/OBS CARE (HIGH) INA ORNELAS MD Oct 07, 2024 13:09
[2024-10-07] MEDS: MAGNESIUM SULFATE 1GM/100ML 100 ML IV ONE (14:43)
[2024-10-07 15:33] LABS: Hematocrit 21.8 % (36.0-46.0); Hemoglobin 7.1 g/dL (12.2-16.2)
[2024-10-07] MEDS: HYDROcodone-ACET 5/325MG TAB PO PRN (22:01)
--- NOTE | 2024-10-07 22:57 | DVHPN2 ---
Subjective The patient is seen and examined at bedside. Feel dizzy today Reviewed: Care Plan, H&P, Labs, Medications, Previous Orders, Radiology Changes from previous H/P or p: No Changes Eyes: No Pain, No Vision change, No Conjunctivae inflammation, No Eyelid inflammation, No Other, No Redness ENT: No Ear pain, No Ear discharge, No Nose pain, No Nose discharge, No Nose congestion, No Mouth pain, No Mouth swelling, No Throat pain, No Throat swelling, No Other Cardiovascular: No Chest Pain, No Palpitations, No Orthopnea, No Paroxysmal Noc. Dyspnea, No Edema, No Lt Headedness, No Other Respiratory: Cough; No Dry, No Shortness of breath, No SOB with excertion, No Wheezing, No Hemoptysis, No Pleuritic Pain; Sputum; No Other Gastrointestinal: Nausea, Vomiting, Abdominal Pain; No Diarrhea, No Constipation, No Melena, No Hematochezia; Other (Hematemesis) Genitourinary: No Dysuria, No Frequency, No Incontinence, No Hematuria, No Retention, No Other Musculoskeletal: No other, No neck pain, No shoulder pain, No arm pain; back pain; No hand pain, No leg pain, No foot pain Skin: No Rash, No Lesions, No Jaundice, No Bruising, No Other Objective Vitals Vital Signs Date Time Temp Pulse Resp B/P (MAP) Pulse Ox O2 Delivery O2 Flow Rate FiO2 10/07/24 22:18 88 18 100 10/07/24 21:00 98.4 122/61 (81) 98.4 10/07/24 18:24 Room Air 0.0 10/07/24 18:24 21 Intake/Output Intake and Output 10/07/24 07:00 Intake Total 1200 ml Output Total 0 ml Balance 1200 ml Intake Oral 0 ml Blood Product 900 ml Other 300 ml Output Urine Total 0 ml # Bowel Movements 1 General Appearance: Alert, Oriented X3, Cooperative, No acute distress HEENT: Atraumatic, PERRLA, EOMI, Mucous membr. moist/pink Neck: Supple Lungs: Clear to auscultation, Normal air movement Cardiovascular: Regular rate, Normal S1, Normal S2, No murmurs, Gallops, Rubs Abdomen: Normal bowel sounds, Soft, No tenderness Neuro: Cranial nerves 3-12 NL Psych/Mental Status: Mental status NL Medications Current Medications Medications Dose Ordered Sig/Tamie Route Start Time Stop Time Status Last Admin Dose Admin Morphine Sulfate 1 mg Q3HP PRN IV 10/06/24 11:00 Ipratropium [place] 0.5 mg Q4HWA NEB 10/06/24 14:00 10/07/24 22:07 0.5 MG Pantoprazole Sodium 40 mg BID IV 10/06/24 22:00 10/07/24 22:00 40 MG Sodium Chloride 1,000 ml @ 60 mls/hr [id number] IV 10/06/24 17:15 10/07/24 09:55 60 MLS/HR Acetaminophen/ Hydrocodone Bitart 1 tab Q4HP PRN PO 10/06/24 17:15 10/07/24 22:01 1 TAB Ondansetron HCl 4 mg Q4HP PRN IV 10/06/24 17:15 Acetaminophen 650 mg Q6HP PRN PO 10/06/24 17:15 Morphine Sulfate 2 mg Q4HPRN PRN IV 10/06/24 17:15 Laboratory Results Laboratory Tests 10/07/24 07:42 10/07/24 15:00 Chemistry Test 10/07/24 07:42 Albumin 2.4 g/dL (3.2-4.8) L Calcium Level 9.1 mg/dL (8.7-10.4) Total Protein 3.8 g/dL (5.7-8.2) L LFT Test 10/07/24 07:42 Alanine Aminotransferase (ALT) 18 U/L (7-40) Alkaline Phosphatase 30 U/L (46-116) L Aspartate Amino Transferase (AST) 21 U/L (13-40) Total Bilirubin 0.3 mg/dL (0.2-1.0) Urinalysis Test 10/06/24 17:35 Urine Color Light-yellow (Yellow) Urine Clarity Clear (Clear) Urine pH 5.0 (5.0-9.0) Urine Specific [place] 1.015 (1.001-1.035) Urine Protein Negative (Negative) Urine Ketones Negative (Negative) Urine Blood Negative /uL (Negative) Urine Nitrite Negative (Negative) Urine Bilirubin Negative (Negative) Urine Urobilinogen Normal mg/dL (Negative) Urine Leukocyte Esterase Negative /uL (Negative) Urine RBC 2 /hpf (0 - 4) Urine Microscopic WBC 1 /HPF (0-5) Urine Squamous Epithelial Cells Few /hpf (<5) Urine Bacteria None seen /hpf (None Seen) Urine Glucose Normal mg/dL (Normal) Labs and/or images reviewed: Labs reviewed by me Assessment/Plan Assessment/Plan Intractable epigastric pain Probable due to Peptic ulcer disease with hemorrhage Anemia probable iron-deficiency anemia and acute blood loss anemia Acute GI bleed Hypokalemia Acute kidney injury Chronic hypertension Chronic asthma Plan: Continuing current management. Continuing with IV Protonix. Waiting for GI specialist to see the patient Replace electrolytes as needed. Continuing with IV fluid. Transfuse as needed for Hemoglobin less than seven. Continuing hypertensive medication. Nebulized as needed for shortness a breath. This medical document was created using an electronic medical record system with [employer] direct computerized dictation system. Although this document has been carefully reviewed, there may still be some phonetic and typographical errors. These areas are purely typographical due to imperfections of the software programs, and do not reflect any compromise in the patient's medical care. Plan discussed with: Patient Date of Service: Oct 07, 2024 Billing Provider: FRANCISCO BOLAND MD Common Visit Codes: [id number] INP/OBS CARE(HIGH) FRANCISCO BOLAND MD Oct 07, 2024 22:57
[2024-10-08] VITALS (18 sets, daily range): BP systolic 112–155; BP diastolic 49–82; PULSE 8–100; RESP 16–18; TEMP 98.1–98.7; O2SAT 97–100
[2024-10-08] MEDS ORDERED: fentaNYL CITRATE 100 MCG/2 ML VL ONE (09:04)
[2024-10-08] MEDS ORDERED: MIDAZOLAM HCL 2MG/2ML 2ml VIAL (1mg/ml) ONE (09:04)
[2024-10-08] MEDS ORDERED: ONDANSETRON HCL 4 MG/2 ML VIAL ONE (09:05)
[2024-10-08] MEDS ORDERED: GLYCOPYRROLATE 0.2 MG/ML 1ML VIAL ONE (09:05)
[2024-10-08] MEDS ORDERED: PROPOFOL 10 MG/ML 20 ML IV ONE (09:05)
--- NOTE | 2024-10-08 09:34 | DVHNC2 ---
Procedure - October 08, 2024 Surgeon: Dr. Ornelas Referring provider: Rosana Renteria Procedure performed: 1. Esophagogastroduodenoscopy with anesthesia 2. Esophago gastroduodenoscopy with control of bleeding with anesthesia 3. Esophagogastroduodenoscopy with biopsy with anesthesia Preprocedure diagnosis: 1. GI bleed 2. Anemia Postprocedure diagnosis: 1. Normal esophagus, Z-line at 38 cm 2. 1. Cm ulcer, cardia region of stomach with nonbleeding visible vessel Indications for procedure: Patient was admitted with GI bleed. He has a history of prior GI bleeding. Patient has been on Carafate and Protonix Medications use: Per Dr. Mackey anesthesia Details of the procedure: Informed consent was obtained after risks, benefits, and alternatives, were discussed at length with the patient. Consent was given for the procedures was a medication used for anesthesia. The patient was placed in the left lateral decubitus position. An Olympus endoscope was inserted into the oropharynx and advanced into the esophagus, then into the stomach then to the 3rd portion of the duodenum. The scope was then withdrawn and the mucosa carefully evaluated. The patient had no findings in the duodenum. The scope w as then withdrawn the stomach showed a 1 cm ulcer with a visible vessel on retroflexion in the cardia region. 10 seconds of gold probe cautery was used to ablate the vessel which resulted in in arterial bleed. Another 25 seconds of gold probe cautery was used to cauterize the blood vessel which slowed down the bleed to an ooze. Epinephrine injection, 7 mL of [id number] dilution was used which resulted in hemostasis. The ulcer had regular borders and did not appear to be malignant. There was erythema on the borders of the ulcer but no active bleeding. Biopsies were taken of the antrum and body and will be sent for H. pylori. The scope was then withdrawn. The esophagus was normal. There were no other lesion seen. The patient tolerated the procedure well. Impression: 1. 1 cm ulcer in cardia with NBVV, S/P treatment with 35 seconds of gold probe cautery and 7 mL of [id number] dilution epinephrine Recommendations: 1. Follow up with biopsy results 2. Proton pump inhibitor twice daily and Carafate 3 times a day 3. Repeat EGD to ensure healing in two months 4. Avoid aspirin NSAIDs and anticoagulants 5. Diet as tolerated , start with clear liquid 6. Follow H&H and transfuse 7. Outpatient follow up with GI 8. Iron supplementation at discharge. 9. Repeat EGD is indicated INA ORNELAS MD Oct 08, 2024 09:34
[2024-10-08] MEDS: EPINEPHrine HCL 1 MG/10 ML SYRG ONE (15:33)
--- NOTE | 2024-10-08 20:04 | DVHPN2 ---
Subjective The patient is seen and examined at bedside. Waiting for EGD today. Reviewed: Care Plan, H&P, Labs, Medications, Previous Orders, Radiology Changes from previous H/P or p: No Changes Eyes: No Pain, No Vision change, No Conjunctivae inflammation, No Eyelid inflammation, No Other, No Redness ENT: No Ear pain, No Ear discharge, No Nose pain, No Nose discharge, No Nose congestion, No Mouth pain, No Mouth swelling, No Throat pain, No Throat swelling, No Other Cardiovascular: No Chest Pain, No Palpitations, No Orthopnea, No Paroxysmal Noc. Dyspnea, No Edema, No Lt Headedness, No Other Respiratory: Cough; No Dry, No Shortness of breath, No SOB with excertion, No Wheezing, No Hemoptysis, No Pleuritic Pain; Sputum; No Other Gastrointestinal: Nausea, Vomiting, Abdominal Pain; No Diarrhea, No Constipation, No Melena, No Hematochezia; Other (Hematemesis) Genitourinary: No Dysuria, No Frequency, No Incontinence, No Hematuria, No Retention, No Other Musculoskeletal: No other, No neck pain, No shoulder pain, No arm pain; back pain; No hand pain, No leg pain, No foot pain Skin: No Rash, No Lesions, No Jaundice, No Bruising, No Other Objective Vitals Vital Signs Date Time Temp Pulse Resp B/P (MAP) Pulse Ox O2 Delivery O2 Flow Rate FiO2 10/08/24 20:00 82 16 100 10/08/24 20:00 Nasal Cannula* 2 28 10/08/24 17:12 98.7 112/49 (70) 98.7 Intake/Output Intake and Output 10/08/24 07:00 Intake Total 770 ml Balance 770 ml Intake Oral 350 ml IV Total 420 ml # Voids 4 # Bowel Movements 2 General Appearance: Alert, Oriented X3, Cooperative, No acute distress HEENT: Atraumatic, PERRLA, EOMI, Mucous membr. moist/pink Neck: Supple Lungs: Clear to auscultation, Normal air movement Cardiovascular: Regular rate, Normal S1, Normal S2, No murmurs, Gallops, Rubs Abdomen: Normal bowel sounds, Soft, No tenderness Neuro: Cranial nerves 3-12 NL Psych/Mental Status: Mental status NL Medications Current Medications Medications Dose Ordered Sig/Tamie Route Start Time Stop Time Status Last Admin Dose Admin Morphine Sulfate 1 mg Q3HP PRN IV 1/24/25 11:00 Ipratropium [place] 0.5 mg Q4HWA NEB 10/06/24 14:00 10/08/24 20:00 0.5 MG Pantoprazole Sodium 40 mg BID IV 10/06/24 22:00 10/08/24 08:16 40 MG Sodium Chloride 1,000 ml @ 60 mls/hr [id number] IV 10/06/24 17:15 10/08/24 02:35 60 MLS/HR Acetaminophen/ Hydrocodone Bitart 1 tab Q4HP PRN PO 10/06/24 17:15 10/08/24 11:01 1 TAB Ondansetron HCl 4 mg Q4HP PRN IV 10/06/24 17:15 Acetaminophen 650 mg Q6HP PRN PO 10/06/24 17:15 Morphine Sulfate 2 mg Q4HPRN PRN IV 10/06/24 17:15 Laboratory Results Laboratory Tests 10/07/24 07:42 10/07/24 15:00 Urinalysis Test 10/06/24 17:35 Urine Color Light-yellow (Yellow) Urine Clarity Clear (Clear) Urine pH 5.0 (5.0-9.0) Urine Specific [place] 1.015 (1.001-1.035) Urine Protein Negative (Negative) Urine Ketones Negative (Negative) Urine Blood Negative /uL (Negative) Urine Nitrite Negative (Negative) Urine Bilirubin Negative (Negative) Urine Urobilinogen Normal mg/dL (Negative) Urine Leukocyte Esterase Negative /uL (Negative) Urine RBC 2 /hpf (0 - 4) Urine Microscopic WBC 1 /HPF (0-5) Urine Squamous Epithelial Cells Few /hpf (<5) Urine Bacteria None seen /hpf (None Seen) Urine Glucose Normal mg/dL (Normal) Labs and/or images reviewed: Labs reviewed by me Assessment/Plan Assessment/Plan Intractable epigastric pain Probable due to Peptic ulcer disease with hemorrhage Anemia probable iron-deficiency anemia and acute blood loss anemia Acute GI bleed Hypokalemia Acute kidney injury Chronic hypertension Chronic asthma Plan: Continuing current management. Continuing with IV Protonix. Waiting for EGD Replace electrolytes as needed. Continuing with IV fluid. Transfuse as needed for hemoglobin less than seven. Continuing hypertensive medication. Nebulized as needed for shortness a breath. This medical document was created using an electronic medical record system with [employer] direct computerized dictation system. Although this document has been carefully reviewed, there may still be some phonetic and typographical errors. These areas are purely typographical due to imperfections of the software programs, and do not reflect any compromise in the patient's medical care. Plan discussed with: Patient Date of Service: Oct 08, 2024 Billing Provider: FRANCISCO BOLAND MD Common Visit Codes: [id number] INP/OBS CARE(HIGH) FRANCISCO BOLAND MD Oct 08, 2024 20:04
[2024-10-09] VITALS (18 sets, daily range): BP systolic 122–139; BP diastolic 66–77; PULSE 80–94; RESP 16–18; TEMP 98–98.9; O2SAT 95–100
--- NOTE | 2024-10-09 11:04 | DVHPN2 ---
Subjective The patient is seen and examined at bedside. Status post EGD Reviewed: Care Plan, H&P, Labs, Medications, Previous Orders, Radiology Changes from previous H/P or p: No Changes Eyes: No Pain, No Vision change, No Conjunctivae inflammation, No Eyelid inflammation, No Other, No Redness ENT: No Ear pain, No Ear discharge, No Nose pain, No Nose discharge, No Nose congestion, No Mouth pain, No Mouth swelling, No Throat pain, No Throat swelling, No Other Cardiovascular: No Chest Pain, No Palpitations, No Orthopnea, No Paroxysmal Noc. Dyspnea, No Edema, No Lt Headedness, No Other Respiratory: Cough; No Dry, No Shortness of breath, No SOB with excertion, No Wheezing, No Hemoptysis, No Pleuritic Pain; Sputum; No Other Gastrointestinal: Nausea, Vomiting, Abdominal Pain; No Diarrhea, No Constipation, No Melena, No Hematochezia; Other (Hematemesis) Genitourinary: No Dysuria, No Frequency, No Incontinence, No Hematuria, No Retention, No Other Musculoskeletal: No other, No neck pain, No shoulder pain, No arm pain; back pain; No hand pain, No leg pain, No foot pain Skin: No Rash, No Lesions, No Jaundice, No Bruising, No Other Objective Vitals Vital Signs Date Time Temp Pulse Resp B/P (MAP) Pulse Ox O2 Delivery O2 Flow Rate FiO2 10/09/24 10:33 86 16 122/66 100 2.0 10/09/24 09:38 Nasal Cannula 10/09/24 09:38 28 10/09/24 09:21 98.7 98.7 Intake/Output Intake and Output 10/09/24 07:00 Intake Total 850 ml Balance 850 ml Intake Oral 850 ml # Voids 7 General Appearance: Alert, Oriented X3, Cooperative, No acute distress HEENT: Atraumatic, PERRLA, EOMI, Mucous membr. moist/pink Neck: Supple Lungs: Clear to auscultation, Normal air movement Cardiovascular: Regular rate, Normal S1, Normal S2, No murmurs, Gallops, Rubs Abdomen: Normal bowel sounds, Soft, No tenderness Neuro: Cranial nerves 3-12 NL Psych/Mental Status: Mental status NL Medications Current Medications Medications Dose Ordered Sig/Tamie Route Start Time Stop Time Status Last Admin Dose Admin Morphine Sulfate 1 mg Q3HP PRN IV 10/06/24 11:00 Ipratropium [place] 0.5 mg Q4HWA NEB 10/06/24 14:00 10/09/24 09:38 0.5 MG Pantoprazole Sodium 40 mg BID IV 10/06/24 22:00 10/09/24 09:43 40 MG Sodium Chloride 1,000 ml @ 60 mls/hr [id number] IV 10/06/24 17:15 10/08/24 19:15 60 MLS/HR Acetaminophen/ Hydrocodone Bitart 1 tab Q4HP PRN PO 10/06/24 17:15 10/08/24 11:01 1 TAB Ondansetron HCl 4 mg Q4HP PRN IV 10/06/24 17:15 Acetaminophen 650 mg Q6HP PRN PO 10/06/24 17:15 Morphine Sulfate 2 mg Q4HPRN PRN IV 10/06/24 17:15 Laboratory Results Laboratory Tests 10/07/24 07:42 10/07/24 15:00 Urinalysis Test 10/06/24 17:35 Urine Color Light-yellow (Yellow) Urine Clarity Clear (Clear) Urine pH 5.0 (5.0-9.0) Urine Specific [place] 1.015 (1.001-1.035) Urine Protein Negative (Negative) Urine Ketones Negative (Negative) Urine Blood Negative /uL (Negative) Urine Nitrite Negative (Negative) Urine Bilirubin Negative (Negative) Urine Urobilinogen Normal mg/dL (Negative) Urine Leukocyte Esterase Negative /uL (Negative) Urine RBC 2 /hpf (0 - 4) Urine Microscopic WBC 1 /HPF (0-5) Urine Squamous Epithelial Cells Few /hpf (<5) Urine Bacteria None seen /hpf (None Seen) Urine Glucose Normal mg/dL (Normal) Labs and/or images reviewed: Labs reviewed by me Assessment/Plan Assessment/Plan Intractable epigastric pain due to Peptic ulcer disease with hemorrhage, EGD shows: 1 cm ulcer in cardia with NBVV, Anemia probable iron-deficiency anemia and acute blood loss anemia Acute GI bleed Hypokalemia Acute kidney injury Chronic hypertension Chronic asthma Plan: Continuing current management. Continuing with IV Protonix and Carafate 3 times per day. Replace electrolytes as needed. Continuing with IV fluid. Transfuse as needed for hemoglobin less than seven. Continuing hypertensive medication. Nebulized as needed for shortness a breath. This medical document was created using an electronic medical record system with [employer] flurenWeddington Way direct computerized dictation system. Although this document has been carefully reviewed, there may still be some phonetic and typographical errors. These areas are purely typographical due to imperfections of the software programs, and do not reflect any compromise in the patient's medical care. Plan discussed with: Patient My Orders Orders - FRANCISCO BOLAND MD Procedure Category Date Status Time Complete Blood Count LAB 10/09/24 Transmitted 11:03 Basic Metabolic Panel LAB 10/09/24 Transmitted 11:03 Date of Service: Oct 09, 2024 Billing Provider: FRANCISCO BOLAND MD Common Visit Codes: [id number] INP/OBS CARE(HIGH) FRANCISOC BOLAND MD Oct 09, 2024 11:04
[2024-10-09 11:48] LABS: Basophils # (auto) 0 10 ^3/uL (0-0.2); Eosinophils # (auto) 0.2 10 ^3/uL (0-0.8); Lymphocytes # (auto) 1.6 10 ^3/uL (0.4-5.4); Monocytes # (auto) 0.4 10 ^3/uL (0-1.3); Nucleated Red Blood Cells % 0.1 %; Platelet Count (auto) 188 10^3/uL (140-450); Red Blood Cells 2.17 10^6/uL (4.0-5.20); White Blood Cell 7.8 10^3/uL (4.4-10.8)
[2024-10-09 11:52] LABS: Basophils % (auto) 0.5 % (0.0-2.0); Eosinophils % (auto) 2.7 % (0.0-7.0); Hematocrit 18.2 % (36.0-46.0); Mean Corpuscular Hemoglobin 28.2 pg (28.0-32.0); Mean Corpuscular Hgb Conc. 33.6 g/dL (32.0-36.0); Monocytes % (auto) 5.6 % (0.0-12.0); Neutrophils # (auto) 5.4 10 ^3/uL (1.6-8.6); Neutrophils % (auto) 70.2 % (37.0-80.0); Red Cell Distribution Width 16.5 % (11.8-14.3)
[2024-10-09 12:00] LABS: Calcium 9.3 mg/dL (8.7-10.4); Sodium 138 mmol/L (136-145)
[2024-10-09 12:01] LABS: Anion Gap 4 (5-15); Carbon Dioxide 27 mmol/L (20-31); Chloride 107 mmol/L (98-107); Hemoglobin 6.1 g/dL (12.2-16.2)
[2024-10-09 12:06] LABS: BUN/Creatinine Ratio 19.1 (10.0-20.0); Blood Urea Nitrogen 17 mg/dL (9-23); Glucose 82 mg/dL (74-106)
--- NOTE | 2024-10-09 12:16 | DVHSR ---
APPROVED REPORT EXAM: Two-dimensional and M-mode echocardiogram with Doppler and color Doppler. Blood Pressure: 132/67 mmHg INDICATION Syncope RISK FACTORS Height: 5'2", Weight: 123 DIMENSIONS LVDd4.7 (3.8-5.7cm)LA (2D)3.2 (1.9-4.0cm)Aortic Root3.0 (2.0-3.7cm) LVDs2.9 (2.5-4.0cm)LA (MM) (1.9-4.0cm)Aortic Cusp Exc1.8 (1.5-2.0cm) EF (%) 69.0 (55-70%)Rt. Atrium4.5 (1.9-4.0cm)Asc. Aorta cm IVSd0.9 (0.7-1.1cm)RV (D)2.9 (1.8-2.4cm) PWd0.7 (0.7-1.1cm) Mitral Valve MitralMitral Stenosis E wave0.69m/sMV Mean GR.mmHg A wave0.76m/sMV Peak GR.mmHg E/A ratio0.92D MVAcm2 DECEL [id number] 1/2 Timems Aortic Valve Aortic ValveAortic Stenosis V11.26m/Krish Mean GR.6mmHg V21.60m/Krish Peak GR.10mmHg LVOT Diameter2.0 (1.8-2.4cm)Doppler AVA2.47cm2 LEFT VENTRICLE The left ventricle is of normal size. Wall thickness is normal. Ejection fraction is estimated at 7 0%. There is no regional wall motion abnormalities. Diastolic function is preserved. E to E prime measures in normal range. RIGHT VENTRICLE The right ventricle is of normal size. Systolic function is normal. ATRIA Both atria are of normal size. Intra-atrial septum appears to be normal. MITRAL VALVE Normal structure and function. No significant regurgitation. PULMONIC VALVE Likely normal. TRICUSPID VALVE Normal structure and function. There is no significant tricuspid regurgitation. PA systolic pressur e is not adequately estimated. AORTIC VALVE Normal structure and function. GREAT VESSELS The aortic root is of normal size. The ascending aorta isn't visualized. PERICARDIAL EFFUSION No significant pericardial effusion. IVC is of normal size and collapses normally with inspiration. Other Information Quality : Technically LimitedRhythm : Technically limited study due to body habitus. Conclusion Normal left ventricular size and hyperdynamic systolic function. Ejection fraction is estimated at 70%. Normal right ventricular size and systolic function. No hemodynamically significant valvular disease. PA systolic pressure isn't adequately estimated. No significant pericardial effusion.
[2024-10-10] VITALS (24 sets, daily range): BP systolic 125–161; BP diastolic 46–85; PULSE 82–114; RESP 17–20; TEMP 98.1–99.8; O2SAT 94–100
[2024-10-10] MEDS: MORPHINE SULFATE INJ 2 MG/ml SYRG IV PRN (02:16)
[2024-10-10 08:22] LABS: Basophils # (auto) 0 10 ^3/uL (0-0.2); Basophils % (auto) 0.4 % (0.0-2.0); Eosinophils # (auto) 0.2 10 ^3/uL (0-0.8); Lymphocytes # (auto) 1.3 10 ^3/uL (0.4-5.4); Monocytes # (auto) 0.6 10 ^3/uL (0-1.3); Neutrophils # (auto) 7.2 10 ^3/uL (1.6-8.6); Neutrophils % (auto) 76.7 % (37.0-80.0)
[2024-10-10 08:24] LABS: Eosinophils % (auto) 2.5 % (0.0-7.0); Hematocrit 18.3 % (36.0-46.0); Lymphocytes % (auto) 14.4 % (10.0-50.0); Mean Corpuscular Hgb Conc. 33.3 g/dL (32.0-36.0); Platelet Count (auto) 220 10^3/uL (140-450); Red Blood Cells 2.17 10^6/uL (4.0-5.20); Red Cell Distribution Width 16.7 % (11.8-14.3); White Blood Cell 9.3 10^3/uL (4.4-10.8)
[2024-10-10 08:41] LABS: Hemoglobin 6.1 g/dL (12.2-16.2)
--- NOTE | 2024-10-10 11:27 | DVHPN2 ---
Subjective The patient is seen and examined at bedside. Status post EGD, still remained weak and tired Reviewed: Care Plan, H&P, Labs, Medications, Previous Orders, Radiology Changes from previous H/P or p: No Changes Eyes: No Pain, No Vision change, No Conjunctivae inflammation, No Eyelid inflammation, No Other, No Redness ENT: No Ear pain, No Ear discharge, No Nose pain, No Nose discharge, No Nose congestion, No Mouth pain, No Mouth swelling, No Throat pain, No Throat swelling, No Other Cardiovascular: No Chest Pain, No Palpitations, No Orthopnea, No Paroxysmal Noc. Dyspnea, No Edema, No Lt Headedness, No Other Respiratory: Cough; No Dry, No Shortness of breath, No SOB with excertion, No Wheezing, No Hemoptysis, No Pleuritic Pain; Sputum; No Other Gastrointestinal: Nausea, Vomiting, Abdominal Pain; No Diarrhea, No Constipation, No Melena, No Hematochezia; Other (Hematemesis) Genitourinary: No Dysuria, No Frequency, No Incontinence, No Hematuria, No Retention, No Other Musculoskeletal: No other, No neck pain, No shoulder pain, No arm pain; back pain; No hand pain, No leg pain, No foot pain Skin: No Rash, No Lesions, No Jaundice, No Bruising, No Other Objective Vitals Vital Signs Date Time Temp Pulse Resp B/P (MAP) Pulse Ox O2 Delivery O2 Flow Rate FiO2 10/10/24 10:14 96 Nasal Cannula* 2 28 10/10/24 10:11 88 18 10/10/24 09:00 98.2 148/77 (100) 98.2 Intake/Output Intake and Output 10/10/24 07:00 Intake Total 1525 ml Balance 1525 ml Intake Oral 1525 ml # Voids 10 # Bowel Movements 1 General Appearance: Alert, Oriented X3, Cooperative, No acute distress HEENT: Atraumatic, PERRLA, EOMI, Mucous membr. moist/pink Neck: Supple Lungs: Clear to auscultation, Normal air movement Cardiovascular: Regular rate, Normal S1, Normal S2, No murmurs, Gallops, Rubs Abdomen: Normal bowel sounds, Soft, No tenderness Neuro: Cranial nerves 3-12 NL Psych/Mental Status: Mental status NL Medications Current Medications Medications Dose Ordered Sig/Tamie Route Start Time Stop Time Status Last Admin Dose Admin Morphine Sulfate 1 mg Q3HP PRN IV 10/06/24 11:00 Ipratropium [place] 0.5 mg Q4HWA NEB 10/06/24 14:00 10/10/24 10:11 0.5 MG Pantoprazole Sodium 40 mg BID IV 10/06/24 22:00 10/10/24 10:56 40 MG Sodium Chloride 1,000 ml @ 60 mls/hr [id number] IV 10/06/24 17:15 10/10/24 04:15 60 MLS/HR Acetaminophen/ Hydrocodone Bitart 1 tab Q4HP PRN PO 10/06/24 17:15 10/09/24 20:30 1 TAB Ondansetron HCl 4 mg Q4HP PRN IV 10/06/24 17:15 Acetaminophen 650 mg Q6HP PRN PO 10/06/24 17:15 Morphine Sulfate 2 mg Q4HPRN PRN IV 10/06/24 17:15 10/10/24 02:16 2 MG Laboratory Results Laboratory Tests 10/09/24 11:20 10/10/24 07:46 Urinalysis Test 10/06/24 17:35 Urine Color Light-yellow (Yellow) Urine Clarity Clear (Clear) Urine pH 5.0 (5.0-9.0) Urine Specific [place] 1.015 (1.001-1.035) Urine Protein Negative (Negative) Urine Ketones Negative (Negative) Urine Blood Negative /uL (Negative) Urine Nitrite Negative (Negative) Urine Bilirubin Negative (Negative) Urine Urobilinogen Normal mg/dL (Negative) Urine Leukocyte Esterase Negative /uL (Negative) Urine RBC 2 /hpf (0 - 4) Urine Microscopic WBC 1 /HPF (0-5) Urine Squamous Epithelial Cells Few /hpf (<5) Urine Bacteria None seen /hpf (None Seen) Urine Glucose Normal mg/dL (Normal) Labs and/or images reviewed: Labs reviewed by me Assessment/Plan Assessment/Plan Intractable epigastric pain due to Peptic ulcer disease with hemorrhage, EGD shows: 1 cm ulcer in cardia with NBVV, Anemia probable iron-deficiency anemia and acute blood loss anemia Acute GI bleed Hypokalemia Acute kidney injury Chronic hypertension Chronic asthma Plan: Continuing current management. Continuing with IV Protonix and Carafate 3 times per day. Replace electrolytes as needed. Continuing with IV fluid. Transfuse as needed for hemoglobin less than seven. Her hemoglobin today is 6.1. I will type and cross and transfuse one packed red blood cell. We will follow up with lab in the morning. Continuing hypertensive medication. Nebulized as needed for shortness a breath. This medical document was created using an electronic medical record system with [employer] direct computerized dictation system. Although this document has been carefully reviewed, there may still be some phonetic and typographical errors. These areas are purely typographical due to imperfections of the software programs, and do not reflect any compromise in the patient's medical care. Plan discussed with: Patient My Orders Orders - FRANCISCO BOLAND MD Procedure Category Date Status Time Packedcells -Active BBK 10/10/24 Logged Bleeding 10:52 Type And Screen BBK 10/10/24 Logged 10:52 Date of Service: Oct 10, 2024 Billing Provider: FRANCISCO BOLAND MD Common Visit Codes: [id number] INP/OBS CARE(HIGH) FRANCISCO BOLAND MD Oct 10, 2024 11:27
[2024-10-10] MEDS: hydrALAZINE HCL 20 MG/ML VL IV PRN (18:17)
[2024-10-11] VITALS (12 sets, daily range): BP systolic 113–180; BP diastolic 69–97; PULSE 77–106; RESP 12–20; TEMP 36.9; O2SAT 93–100
--- NOTE | 2024-10-11 11:14 | DVHPN2 ---
Subjective The patient is seen and examined at bedside. Status post EGD, still remained weak and tired Reviewed: Care Plan, H&P, Labs, Medications, Previous Orders, Radiology Eyes: No Pain, No Vision change, No Conjunctivae inflammation, No Eyelid inflammation, No Other, No Redness ENT: No Ear pain, No Ear discharge, No Nose pain, No Nose discharge, No Nose congestion, No Mouth pain, No Mouth swelling, No Throat pain, No Throat swelling, No Other Cardiovascular: No Chest Pain, No Palpitations, No Orthopnea, No Paroxysmal Noc. Dyspnea, No Edema, No Lt Headedness, No Other Respiratory: Cough; No Dry, No Shortness of breath, No SOB with excertion, No Wheezing, No Hemoptysis, No Pleuritic Pain; Sputum; No Other Gastrointestinal: Nausea, Vomiting, Abdominal Pain; No Diarrhea, No Constipation, No Melena, No Hematochezia; Other (Hematemesis) Genitourinary: No Dysuria, No Frequency, No Incontinence, No Hematuria, No Retention, No Other Musculoskeletal: No other, No neck pain, No shoulder pain, No arm pain; back pain; No hand pain, No leg pain, No foot pain Skin: No Rash, No Lesions, No Jaundice, No Bruising, No Other Objective Vitals Vital Signs Date Time Temp Pulse Resp B/P (MAP) Pulse Ox O2 Delivery O2 Flow Rate FiO2 10/11/24 09:58 96 Nasal Cannula* 2 28 10/11/24 09:08 98.4 102 12 128/77 (94) 98.4 Intake/Output Intake and Output 10/11/24 07:00 Intake Total 2540 ml Balance 2540 ml Intake Oral 2240 ml Blood Product 300 ml # Voids 10 General Appearance: Alert, Oriented X3, Cooperative, No acute distress HEENT: Atraumatic, PERRLA, EOMI, Mucous membr. moist/pink Neck: Supple Lungs: Clear to auscultation, Normal air movement Cardiovascular: Regular rate, Normal S1, Normal S2, No murmurs, Gallops, Rubs Abdomen: Normal bowel sounds, Soft, No tenderness Neuro: Cranial nerves 3-12 NL Psych/Mental Status: Mental status NL Medications Current Medications Medications Dose Ordered Sig/Tamie Route Start Time Stop Time Status Last Admin Dose Admin Morphine Sulfate 1 mg Q3HP PRN IV 10/06/24 11:00 Ipratropium [place] 0.5 mg Q4HWA NEB 10/06/24 14:00 10/11/24 05:26 0.5 MG Pantoprazole Sodium 40 mg BID IV 10/06/24 22:00 10/11/24 09:04 40 MG Sodium Chloride 1,000 ml @ 60 mls/hr [id number] IV 10/06/24 17:15 10/10/24 04:15 60 MLS/HR Acetaminophen/ Hydrocodone Bitart 1 tab Q4HP PRN PO 10/06/24 17:15 10/11/24 00:00 1 TAB Ondansetron HCl 4 mg Q4HP PRN IV 10/06/24 17:15 Acetaminophen 650 mg Q6HP PRN PO 10/06/24 17:15 Morphine Sulfate 2 mg Q4HPRN PRN IV 10/06/24 17:15 10/10/24 20:12 2 MG Hydralazine HCl 10 mg Q6HP PRN IV 10/10/24 17:15 10/11/24 03:31 10 MG Sucralfate 1 gm TID@0600,1130,2200 GT 10/11/24 11:30 Laboratory Results Laboratory Tests 10/09/24 11:20 10/10/24 07:46 Urinalysis Test 10/06/24 17:35 Urine Color Light-yellow (Yellow) Urine Clarity Clear (Clear) Urine pH 5.0 (5.0-9.0) Urine Specific [place] 1.015 (1.001-1.035) Urine Protein Negative (Negative) Urine Ketones Negative (Negative) Urine Blood Negative /uL (Negative) Urine Nitrite Negative (Negative) Urine Bilirubin Negative (Negative) Urine Urobilinogen Normal mg/dL (Negative) Urine Leukocyte Esterase Negative /uL (Negative) Urine RBC 2 /hpf (0 - 4) Urine Microscopic WBC 1 /HPF (0-5) Urine Squamous Epithelial Cells Few /hpf (<5) Urine Bacteria None seen /hpf (None Seen) Urine Glucose Normal mg/dL (Normal) Assessment/Plan Assessment/Plan Intractable epigastric pain due to Peptic ulcer disease with hemorrhage, EGD shows: 1 cm ulcer in cardia with NBVV, Anemia probable iron-deficiency anemia and acute blood loss anemia Acute GI bleed Hypokalemia Acute kidney injury Chronic hypertension Chronic asthma Plan: Continuing current management. Continuing with IV Protonix and Carafate 3 times per day. Replace electrolytes as needed. Continuing with IV fluid. Transfuse as needed for hemoglobin less than seven. Her hemoglobin today is 6.1. I will type and cross and transfuse one packed red blood cell. We will follow up with lab in the morning. Continuing hypertensive medication. Nebulized as needed for shortness a breath. This medical document was created using an electronic medical record system with [employer] direct computerized dictation system. Although this document has been carefully reviewed, there may still be some phonetic and typographical errors. These areas are purely typographical due to imperfections of the software programs, and do not reflect any compromise in the patient's medical care. My Orders Orders - FRANCISCO BOLAND MD Procedure Category Date Status Time Hydralazine Injection PHA 10/10/24 In Process (Apresoline Inject 17:15 Complete Blood Count LAB 10/11/24 Logged 09:49 Basic Metabolic Panel LAB 10/11/24 Logged 09:49 Sucralfate Susp PHA 10/11/24 In Process (Carafate Susp) 11:30 Complete Blood Count LAB 10/12/24 Verified 05:00 Basic Metabolic Panel LAB 10/12/24 Verified 05:00 FRANCISCO BOLAND MD Oct 11, 2024 11:14
[2024-10-11 12:04] LABS: Basophils # (auto) 0 10 ^3/uL (0-0.2); Basophils % (auto) 0.3 % (0.0-2.0); Eosinophils # (auto) 0.2 10 ^3/uL (0-0.8); Eosinophils % (auto) 2.5 % (0.0-7.0); Hematocrit 26.6 % (36.0-46.0); Hemoglobin 8.8 g/dL (12.2-16.2); Lymphocytes # (auto) 1.3 10 ^3/uL (0.4-5.4); Lymphocytes % (auto) 16.9 % (10.0-50.0); Mean Corpuscular Hemoglobin 28.5 pg (28.0-32.0); Mean Corpuscular Hgb Conc. 33.2 g/dL (32.0-36.0); Mean Corpuscular Volume 85.9 fL (80.0-100.0); Monocytes # (auto) 0.4 10 ^3/uL (0-1.3); Neutrophils # (auto) 5.5 10 ^3/uL (1.6-8.6); Neutrophils % (auto) 74.3 % (37.0-80.0); Nucleated Red Blood Cells % 0.1 %; Platelet Count (auto) 290 10^3/uL (140-450); Red Cell Distribution Width 18.2 % (11.8-14.3); White Blood Cell 7.4 10^3/uL (4.4-10.8)
[2024-10-11] MEDS: SUCRALFATE 1 GM/10 ML ORAL SUSP GT SCH (12:07)
[2024-10-11 12:11] LABS: Chloride 106 mmol/L (98-107); Potassium 3.9 mmol/L (3.5-5.1); Sodium 138 mmol/L (136-145)
[2024-10-11 12:12] LABS: Anion Gap 6 (5-15); Calcium 10.2 mg/dL (8.7-10.4); Carbon Dioxide 26 mmol/L (20-31)
[2024-10-11 12:18] LABS: BUN/Creatinine Ratio 5.4 (10.0-20.0); Blood Urea Nitrogen < 5 mg/dL (9-23); Glucose 112 mg/dL (74-106)
[2024-10-11] MEDS ORDERED: SUCR1SUS26 PO (13:16)
[2024-10-11] MEDS ORDERED: ESOM40CA83 PO (13:16)
--- NOTE | 2024-10-11 13:18 | DVHDS2 ---
Discharge Summary Date of Admission Oct 06, 2024 at 17:01 Date of Discharge: Oct 11, 2024 Admitting Diagnosis Intractable epigastric pain History of Peptic ulcer disease with hemorrhage Anemia probable iron-deficiency anemia and acute blood loss anemia Acute GI bleed Hypokalemia Acute kidney injury Chronic hypertension Chronic asthma Labs/Diagnostic Data: Laboratory Results Test 10/11/24 11:33 10/07/24 07:42 10/06/24 17:37 10/06/24 17:35 White Blood Count 7.4 10^3/uL (4.4-10.8) Red Blood Count 3.10 10^6/uL (4.0-5.20) Hemoglobin 8.8 g/dL (12.2-16.2) Hematocrit 26.6 % (36.0-46.0) Mean Corpuscular Volume 85.9 fL (80.0-100.0) Mean Corpuscular Hemoglobin 28.5 pg (28.0-32.0) Mean Corpuscular Hemoglobin Concent 33.2 g/dL (32.0-36.0) Red Cell Distribution Width 18.2 % (11.8-14.3) Platelet Count 290 10^3/uL (140-450) Mean Platelet Volume 8.5 fL (6.9-10.8) Neutrophils (%) (Auto) 74.3 % (37.0-80.0) Lymphocytes (%) (Auto) 16.9 % (10.0-50.0) Monocytes (%) (Auto) 6.0 % (0.0-12.0) Eosinophils (%) (Auto) 2.5 % (0.0-7.0) Basophils (%) (Auto) 0.3 % (0.0-2.0) Neutrophils # (Auto) 5.5 10 ^3/uL (1.6-8.6) Lymphocytes # (Auto) 1.3 10 ^3/uL (0.4-5.4) Monocytes # (Auto) 0.4 10 ^3/uL (0-1.3) Eosinophils # (Auto) 0.2 10 ^3/uL (0-0.8) Basophils # (Auto) 0 10 ^3/uL (0-0.2) Nucleated Red Blood Cells 0.1 % Sodium Level 138 mmol/L (136-145) Potassium Level 3.9 mmol/L (3.5-5.1) Chloride Level 106 mmol/L (98-107) Carbon Dioxide Level 26 mmol/L (20-31) Anion Gap 6 (5-15) Blood Urea Nitrogen < 5 mg/dL (9-23) Creatinine 0.93 mg/dL (0.550-1.02) Glomerular Filtration Rate Calc 68 mL/min (>90) BUN/Creatinine Ratio 5.4 (10.0-20.0) Serum Glucose 112 mg/dL (74-106) Calcium Level 10.2 mg/dL (8.7-10.4) Total Bilirubin 0.3 mg/dL (0.2-1.0) Aspartate Amino Transferase (AST) 21 U/L (13-40) Alanine Aminotransferase (ALT) 18 U/L (7-40) Alkaline Phosphatase 30 U/L (46-116) Total Protein 3.8 g/dL (5.7-8.2) Albumin 2.4 g/dL (3.2-4.8) Phosphorus Level 3.3 mg/dL (2.4-5.1) Magnesium Level 1.8 mg/dL (1.6-2.6) Troponin I High Sensitivity 169 ng/L (</=34) Urine Color Light-yellow (Yellow) Urine Clarity Clear (Clear) Urine pH 5.0 (5.0-9.0) Urine Specific [place] 1.015 (1.001-1.035) Urine Protein Negative (Negative) Urine Ketones Negative (Negative) Urine Blood Negative /uL (Negative) Urine Nitrite Negative (Negative) Urine Bilirubin Negative (Negative) Urine Urobilinogen Normal mg/dL (Negative) Urine Leukocyte Esterase Negative /uL (Negative) Urine RBC 2 /hpf (0 - 4) Urine Microscopic WBC 1 /HPF (0-5) Urine Squamous Epithelial Cells Few /hpf (<5) Urine Bacteria None seen /hpf (None Seen) Urine Glucose Normal mg/dL (Normal) Urine Opiates Screen Neg (NEGATIVE) Urine Fentanyl Screen Neg (NEGATIVE) Urine Barbiturates Screen Neg (NEGATIVE) Urine Phencyclidine Screen Neg (NEGATIVE) Urine Amphetamines Screen Neg (NEGATIVE) Urine Benzodiazepines Screen Neg (NEGATIVE) Urine Cocaine Screen Neg (NEGATIVE) Urine Cannabinoids Screen Pos (NEGATIVE) Test 10/06/24 17:00 10/06/24 13:30 10/06/24 11:18 10/06/24 10:18 Influenza Type A Antigen Negative (Negative) Influenza Type B Antigen Negative (Negative) SARS-CoV-2 Antigen (Rapid) Negative (NEGATIVE) Reticulocyte Count (auto) 1.82 % (0.5-1.5) Lactic Acid Level 1.7 mmol/L (0.4-2.0) Prothrombin Time 10.3 sec (9.3-11.8) Prothrombin Time INR 0.97 (0.9-1.15) Activated Partial Thromboplast Time 20.5 SEC (24.5-34.5) Iron Level 39 ug/dL (50-170) Total Iron Binding Capacity 306 ug/dL (250-425) Percent Iron Saturation 12.7 % (15-50) Lactate Dehydrogenase 134 U/L (120-246) B-Type Natriuretic Peptide 16.93 pg/mL (0-100) Lipase 25 U/L (12-53) Vitamin B12 Level 1213 pg/mL (211-911) Folic Acid 10.47 ng/mL (>5.38) Thyroid Stimulating Hormone (TSH) 0.71 uIU/mL (0.55-4.78) Parathyroid Hormone (Intact) 270.0 pg/mL (18.4-80.1) Other Laboratory Tests 10/11/24 11:33 Brief Hx & Hospital Course: This is a 64 years old female with past medical history of hypertension, asthma, hysterectomy, hernia repair came to emergency department because of intractable nausea, vomiting with black emesis and epigastric pain 10/10 throbbing and intermittent that radiates to her back. The patient was admitted. The patient was found to have severe anemic with hemoglobin of 6. The patient received three packed red blood cell transfusions. The patient subsequently has the CT scan abdomen pelvis done which showed no acute process. Patient also had a carotid ultrasound showed no stenosis and chest x-ray showed no abnormality. The patient had 2D echo showed normal echo with EF of 70%. GI specialist, , see the patient and did a EGD. It showed: 1. Normal esophagus, Z-line at 38 cm. 2. 1. Cm ulcer, cardia region of stomach with nonbleeding visible vessel. He recommend PPI 40 mg twice per day and Carafate 3 times per day. Today the patient's hemoglobin is stable at 8.8. The patient did not have any hematemesis or melena. The patient tolerated diet. I am going to discharge the patient home. Advised the patient to follow up with primary care physician 1-2 weeks. Follow up with GI specialist in three months for repeat EGD to further evaluation the healing of the ulcer. Follow up with primary care physician 1-2 weeks. Activity as tolerated. Diet home diet. Physical exam: HEENT: Normocephalic atraumatic pupils equal react to light and accommodation. Extraocular muscles intact, conjunctiva pink, oropharynx moist, no thrush, no exudate. Lymphatic: No lymphadenopathy Cardiovascular exam: S1, S2 was heard. No murmurs, rubs, gallops Lung: Clear on auscultation bilaterally, no wheeze, rale, rhonchi. GI: Abdominal soft, nondistended, nontenderness, positive bowel sounds. Extremity: No crepitus, cyanosis, edema. Pedal pulses present bilateral. Full range of motion. Skin: Normal turgor, no rash. Psych: Alert, oriented x3. Neurology: No focal deficits, cranial nerve II to XII grossly intact. This medical document was created using an electronic medical record system with [employer] direct computerized dictation system. Although this document has been carefully reviewed, there may still be some phonetic and typographical errors. These areas are purely typographical due to imperfections of the software programs, and do not reflect any compromise in the patient's medical care. Condition at Discharge: Stable Final Diagnosis/Problems List Acute GI bleed and acute blood lost anemia Intractable epigastric pain due to Peptic ulcer disease with hemorrhage, EGD shows: 1 cm ulcer in cardia with NBVV, Anemia probable iron-deficiency anemia and acute blood loss anemia Hypokalemia Acute kidney injury Chronic hypertension Chronic asthma Discharge Disposition: Home Discharge Instruct/Medications Diet: Regular Activity: No Restrictions, As Tolerated Follow Up/Referral: pcp 1-2 weeks GI specialist for 4 weeks, for repeat EGD Medications: nexium 40mg bid carafate 1000mg qid resume home meds Discharge Statement: "Patient was advised to return to the ER or call 911 if any headaches, dizziness, shortness of breath, chest pain, abdominal pain, bleeding, fevers, or worsening of medical condition. Patient was counseled about treatment plan, medications, possible side effects, patientverbalized understanding. All questions were answered to the best of my ability. This discharge took greater then 30 minutes in planning, reviewing documentation, counseling the patient, and discussing with other team members." ASSESSMENT ASSESSMENT Assessment Acute GI bleed and acute blood lost anemia Date of Service: Oct 11, 2024 Billing Provider: FRANCISCO BOLAND MD Common Visit Codes: [id number] DISCH DAY >30min FRANCISCO BOLAND MD Oct 11, 2024 13:18
[2024-10-11 17:29] LABS: Hematocrit 26.1 % (36.0-46.0); Hemoglobin 8.7 g/dL (12.2-16.2)
== END 2024-10-11 19:05 | disposition home or self-care (01) | DRG 377 ==
LOC: ER 10:08 → OVERFLOW 17:01 → TELE 20:00 → TELE-EAST 10-07 01:59
PROVIDERS: ADMIT Radiology Diagnostic Radiology; ATTEND Internal Medicine
PROC: 30233N1 Transfusion of Nonautologous Red Blood Cells into Peripheral Vein, Percutaneous Approach (ICD-10-PCS; 2024-10-06)
PROC: 0DB78ZX Excision of Stomach, Pylorus, Via Natural or Artificial Opening Endoscopic, Diagnostic (ICD-10-PCS; 2024-10-08)
PROC: 0W3P8ZZ Control Bleeding in Gastrointestinal Tract, Via Natural or Artificial Opening Endoscopic (ICD-10-PCS; 2024-10-08)
PROC: 0DB68ZX Excision of Stomach, Via Natural or Artificial Opening Endoscopic, Diagnostic (ICD-10-PCS; principal; 2024-10-08 09:04)
DX: K27.0 Acute peptic ulcer, site unspecified, with hemorrhage (principal); N17.0 Acute kidney failure with tubular necrosis; D62 Acute posthemorrhagic anemia; E87.6 Hypokalemia; Z20.822 Contact with and (suspected) exposure to COVID-19; I10 Essential (primary) hypertension; J43.9 Emphysema, unspecified; Z80.1 Family history of malignant neoplasm of trachea, bronchus and lung; Z82.5 Family history of asthma and other chronic lower respiratory diseases; Z87.891 Personal history of nicotine dependence; Z90.710 Acquired absence of both cervix and uterus
CPT/HCPCS: 36415; 36430; 71045; 74176; 80048; 80053; 80307; 81001; 82607; 82746; 83540; 83550; 83605; 83615; 83690; 83735; 83880; 83970; 84100; 84132; 84443; 84484; 85014; 85018; 85025; 85045; 85610; 85730; 86850; 86900; 86901; 86920; 87426; 87804; 93005; 93306; 93886; 94640; G0378; J2250; J2405; J2470; J2704; J3480

== ENCOUNTER 2024-12-24 17:03 | Emergency (ER) | payer MEDICARE, MEDICAID ==
[~2024-12-24] VITALS: Ht 157.5 cm; Wt 49.7 kg
[~2024-12-24 17:03] MED LIST changes: +ESOM40CA83 PO; -PANT40T PO; +SUCR1SUS26 PO
[2024-12-24] MEDS: TETANUS-DIPTH-ACEL PERTUSSIS 0.5ML SYR Tdap IM ONE (17:15)
[2024-12-24] MEDS ORDERED: AUG875T PO (17:17)
--- NOTE | 2024-12-24 17:41 | ED.PDOC ---
History of Present Illness HPI Comments 64 y/o F, with a history of anemia w/blood transfusions, asthma, REJI, and HTN, presents with c/o multiple dog bite wound with associated swelling, today. Patient endorses on sustaining a bite from her son's pet dog on her forearm and upper arm at around 1400, this afternoon. Dog is up-to-date on vaccines. Patient's last tetanus shot is unknown.. Patient cleaned her wounds thoroughly with water and soap prior to coming to the ER. She denies any discharge, fever, chills, or other associated symptoms or modifiers at this time. Still able to move all of her fingers, hand, wrist, elbow, and shoulder normally. Normal sensation. No active bleeding. Chief Complaint: Animal Bite Time Seen by MD: 17:10 Primary Care Provider: RAPHAEL Hills Notes: Nurses Notes, Medications, Allergies Allergies: Uncoded Allergies: shell fish (Allergy, Severe, 06/28/24) Home Meds Active Scripts Amoxicillin & Pot Clavulanate (AUGMENTIN TABLET) 875 Mg Tb, 875 MG PO BID for 10 Days, #20 TAB Prov:ZAIRA WHITTAKER MD 12/24/24 Sucralfate (CARAFATE SUSP) 1 Gm/10 Ml Ss, 10 ML PO QID, #1200 ML 3 Refills Prov:FRANCISCO BOLAND MD 10/11/24 Esomeprazole Magnesium (Esomeprazole Magnesium Dr) 40 Mg Cap, 40 MG PO BID, #60 CAP Prov:FRANCISCO BOLAND MD 10/11/24 Albuterol Sulfate (VENTOLIN MDI) 90 Mcg Ih, 90 MCG IN QIDP PRN for 30 Days, #1 INH Prov:JIMY PRICE 07/06/24 Nifedipine (Nifedipine Er) 30 Mg Tab, 60 MG PO DAILY for 30 Days, #60 TAB Prov:JIMY PRICE 07/06/24 Metoprolol Succinate (Toprol Xl) 50 Mg Tab, 25 MG PO DAILY for 30 Days, #30 TAB Prov:JIMY PRICE RESIDENT 07/06/24 Albuterol Sulfate (Ventolin) 2.5 Mg/0.5 Ml Nb, 1 VIAL NEB Q4HR, #60 VIAL 1 Refill Prov:NICANOR RAMESH 01/12/24 Reported Medications Montelukast Sodium (MONTELUKAST SODIUM) 10 Mg Tab, 1 TAB PO 06/26/24 Losartan Potassium (Losartan Potassium) 50 Mg Tab, 1 TAB PO DAILY 06/26/24 Albuterol Sulfate (Albuterol Sulfate Hfa) 108 Mcg/Act Aer, 108 MCG IN PRN, AER 07/24/22 Information Source: Patient Mode of Arrival: Ambulatory Severity: Moderate Timing: Hours Duration: Since onset Prehospital treatment: Other (dressing ) Past Medical History PAST MEDICAL HISTORY: Anemia, Asthma, HTN Past Medical History (Other): REJI, hypokalemia Surgical History: Hysterectomy Surgical History (Other): blood transfusion [employer]MENT [employer] 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 History: Unknown Family History Family History: Reviewed,noncontributory to illness Social History Smoker: Non-Smoker Alcohol: Denies ETOH Use Drugs: Other Lives In: Home All Other Systems: Reviewed and Negative (Comprehensive systems review obtained and negative except for what is stated in the HPI.) Physical Exam General Appearance: No Apparent Distress, Normal HEENT: Normal ENT Inspection, Pharynx Normal, TMs Normal Neck: Full Range of Motion, Non-Tender, Normal, Normal Inspection Respiratory: Chest Non-Tender, Lungs Clear, No Accessory Muscle Use, No Respiratory Distress, Normal Breath Sounds Cardiovascular: No Edema, No JVD, No Murmur, No Gallop, Normal Peripheral Pulses, Regular Rate/Rhythm Breast Exam: Deferred Gastrointestinal: No Organomegaly, Non Tender, No Pulsatile Mass, Normal Bowel Sounds, Soft Genitalia: Deferred Pelvic: Deferred Rectal: Deferred Extremities: No calf tenderness, Normal capillary refill, Normal inspection, Normal range of motion, No pedal edema Musculoskeletal : Apperance: Normal Neurologic: Alert, mangle catcher II-XII nml as Tested, No Motor Deficits, Normal Affect, Normal Mood, No Sensory Deficits Cerebellar Function: Normal Reflexes: Normal Skin: Dry, Normal Color, Warm, Other (Approximately 1.5 cm laceration to the right forearm with the additional scattered superficial puncture wounds, abrasions to the upper arm without any suturable laceration. Full range of motion patient was fingers, wrist, hand, elbow, and shoulder without any pain. FDS and FDP tendons all intact. No wounds to the hand or wrist. 2+ radial pulse. Sensation intact to light touch throughout. No active bleeding. Compartments soft.) Lymphatic: No Adenopathy Was a procedure done? Was a procedure done?: Yes Sedation Sedation?: No Laceration Repair : Location Right forearm Length 1.5 cm Anesthetic: Lidocaine Laceration Repair Prep: Saline, Betadine, by Irrigation, Manual Scrub Laceration Repair: Number of sutures (1), Layers Closed (1), Nylon, Simple, Bacitracin, Non-adherent gauze Informed consent obtained: Yes Risks, benefits, and alternati: Yes Notes Laceration was loosely closed to prevent deep space infection but also to help minimize scar formation Differential Dx Considerations may include: Laceration, abrasion, foreign body, fracture, dislocation, deep space infection, tendon injury, joint infection, compartment syndrome, neurovascular compromise X-Ray, Labs, Meds, VS Vital Signs Date Time Temp Pulse Resp B/P (MAP) Pulse Ox O2 Delivery O2 Flow Rate FiO2 12/24/24 17:10 98.0 90 18 150/88 (108) 100 98.0 X-Ray, Labs, Meds, VS Comment 64-year-old female here today status post dog bite. Vital signs stable, afebrile. X-rays of the forearm and humerus without evidence of fracture, dislocation, nor foreign body. Wounds are all far from the joint, no concern for joint space violation. Patient was wounds were cleaned once again in the ER thoroughly and laceration was repaired with a one single simple interrupted suture as per procedure note to help minimize scar formation but also not completely closed to avoid infection. Augmentin was prescribed to the patient was preferred pharmacy. I instructed the patient to return to the ER, urgent care, or her primary care provider within 7-10 days for suture removal. Prov ided strict return precautions for signs of infection, fevers, nausea, vomiting, or any other new or concerning symptoms. Tdap updated in the ER. Patient was discharged home in stable condition ambulating with a steady gait in no distress. Images Reviewed?: Images reviewed and evaluated by me Time of 1ST Reevaluation: 17:40 Reevaluation 1ST: Improved Patient Education/Counseling: Diagnosis, Treatment Family Education/Counseling: No Family Present Additional Information Previous medical encounters reviewed: N/A The following tests were ordered, and results were reviewed by me: r humerus and forearm X-ray Additional Information was gathered from interviewing the following independent historians: N/A I reviewed and agreed with the following test results read by other providers: r humerus and forearm X-ray I discussed treatment and results with medical personnel and: Patient Departure 1 Departure Time of Disposition: 20:24 Impression: Primary Impression: Dog bite Additional Impressions: Need for Tdap vaccination Laceration Disposition: HOME / SELF CARE / HOMELESS Condition: Stable e-Prescriptions Amoxicillin & Pot Clavulanate (AUGMENTIN TABLET) 875 Mg Tb 875 MG PO BID for 10 Days, #20 TAB Prov: ZAIRA WHITTAKER MD 12/24/24 Discharged With: Self Critical Care Note Critical Care Time?: No Stability Stability form required: No Heart Score Heart Score: Heart Score Response (Comments) Value History N/A 0 EKG N/A 0 Age N/A 0 Risk Factors N/A 0 Troponin N/A 0 Total 0 I personally scribed for ZAIRA WHITTAKER MD ([email or web address]) on 12/24/24 at 17:41. Electronically submitted by Sandeep Bonds ([email or web address]). ZAIRA WHITTAKER MD Dec 24, 2024 17:41
--- NOTE | 2024-12-24 17:43 | DVH ---
CLINICAL INDICATION: dog bite TECHNIQUE: XY R FOREARM XRAY Comparison: None FINDINGS / IMPRESSION: No osseous or joint abnormality identified with no fracture or dislocation. Soft tissues appear unrem arkable with no radiopaque foreign body.
--- NOTE | 2024-12-24 17:54 | DVH ---
EXAM: XY R HUMERUS XRAY CLINICAL HISTORY: dog bite COMPARISON: None TECHNIQUE: XY R HUMERUS XRAY Findings/Impression: 2 views of the right humerus. There is no evidence of an acute fracture, dislocation, blastic, or lytic lesions. No radiopaque foreign bodies. No superficial soft tissue abnormalities.
[2024-12-24] MEDS: LIDOCAINE 1% HCL (LOCAL ANESTH.) INJ 20ML MDV ID ONE (20:39)
[2024-12-24 20:41] VITALS: BP 110/54; PULSE 79; RESP 15; TEMP 98.3; O2SAT 97
== END 2024-12-24 20:43 | disposition home or self-care (01) ==
LOC: ER 17:03
DX: S51.811A Laceration without foreign body of right forearm, initial encounter (principal); J45.909 Unspecified asthma, uncomplicated; I10 Essential (primary) hypertension; Z79.899 Other long term (current) drug therapy; Z90.710 Acquired absence of both cervix and uterus; W54.0XXA Bitten by dog, initial encounter; Y93.89 Activity, other specified; Y92.89 Other specified places as the place of occurrence of the external cause; Y99.8 Other external cause status
CPT/HCPCS: 12001; 73060; 73090; 90471; 90715; 99284; J2003